=== PATIENT | female | born 1965 | race Caucasian/White ===

== ENCOUNTER → 2016-10-14 | Outpatient (REF) | payer OTHER ==
[2016-10-14 19:09] LABS: ALBUMIN 4.1 GM/DL (3.2-5.2); ALBUMIN/GLOBULIN RATIO 1.11 (1.00-1.93); BILIRUBIN,TOTAL 0.7 MG/DL (0.2-1.0); CALCIUM LEVEL 10.6 MG/DL (8.5-10.1); CREATININE FOR GFR 1.15 MG/DL (0.55-1.02); GLOMERULAR FILTRATION RATE 53.2 (>51); POTASSIUM SERUM 3.8 MEQ/L (3.5-5.1); TOTAL PROTEIN 7.8 GM/DL (6.4-8.2)
[2016-10-14 19:15] LABS: MEAN CORPUSCULAR HEMOGLOBIN 29.4 pg (27.0-33.0); MEAN CORPUSCULAR HGB CONC 32.3 g/dl (32.0-36.5); MEAN CORPUSCULAR VOLUME 91.2 fl (80.0-96.0); RED CELL DISTRIBUTION WIDTH 14.2 % (11.5-14.5); WHITE BLOOD COUNT 7.5 K/mm3 (4.0-10.0)
== END ==
LOC: M SFHCPLAZ 15:18
PROVIDERS: ATTEND Nurse Practitioner Adult Health
DX: Z00.00 Encounter for general adult medical examination without abnormal findings (principal)

== ENCOUNTER → 2016-11-05 | Outpatient (REF) | payer OTHER ==
[2016-11-05 19:08] LABS: CALCIUM OXALATE CRYSTALS SMALL
== END ==
LOC: M LAB REF 17:17
PROVIDERS: ATTEND Physician Assistant
DX: N39.0 Urinary tract infection, site not specified (principal)

== ENCOUNTER 2016-11-13 13:46 | Day surgery (SDC) | payer OTHER ==
[~2016-11-13] VITALS: Ht 157.5 cm; Wt 63.5 kg
[2016-11-13] MEDS ORDERED: GABA300C3 (14:08)
[2016-11-13] MEDS ORDERED: TOPI25TA5 (14:08)
[2016-11-13] MEDS ORDERED: CITA40TA4 (14:08)
[2016-11-13] MEDS ORDERED: FLUT1SPR2 (14:08)
[2016-11-13] MEDS ORDERED: CIPR500T3 (14:08)
[2016-11-13] MEDS ORDERED: NS 1,000 ML IV ONE (14:45)
[2016-11-13] MEDS ORDERED: KETOROLAC 30 MG/ML VIAL (J1885) IV ONE (14:45)
[2016-11-13] MEDS ORDERED: ONDANSETRON 4MG/2ML VIAL (J2405) IV ONE (14:45)
--- NOTE | 2016-11-13 15:29 | REP ---
REASON: Left-sided flank pain with hematuria. COMPARISON: None. There is right renal enlargement and moderate hydronephrosis which can be followed to the level of the ureteropelvic junction where a somewhat round 8 mm sized calcification resides. There are bilateral multiple nephroliths. There are multiple bilateral pelvic phleboliths. There is a large calcification in the left hemipelvis which is abutting more likely than within the distal left ureter since there is no marialuisa left-sided hydronephrosis. A calculus of this size would at least cause some expected hydronephrosis and hydroureter. Limited evaluation of the solid intra-abdominal organs and gallbladder show no gross abnormalities. Limited evaluation of the bowel loops and their mesenteries show no gross abnormalities. There is no intra-abdominal or intrapelvic mass or adenopathy. There is no free fluid or free air in the abdomen or pelvis. There are no urinary bladder calcifications. Bone window technique through the examination shows no abnormalities. IMPRESSION: 1. Right-sided hydronephrosis due to an 8 mm size calcification as described above. 2. Bilateral nephroliths. 3. Large left hemipelvic calcification as described above. I recommend followup. Signed by Juve Pink DO 11/13/2016 03:58 P
[2016-11-13 15:49] LABS: ALBUMIN 3.8 GM/DL (3.2-5.2); ALBUMIN/GLOBULIN RATIO 1.03 (1.00-1.93); BILIRUBIN,DIRECT 0.1 MG/DL (0.0-0.2); BILIRUBIN,TOTAL 0.6 MG/DL (0.2-1.0); CALCIUM LEVEL 10.3 MG/DL (8.5-10.1); CREATININE FOR GFR 2.03 MG/DL (0.55-1.02); GLOMERULAR FILTRATION RATE 27.6 (>51); POTASSIUM SERUM 4.2 MEQ/L (3.5-5.1); TOTAL PROTEIN 7.5 GM/DL (6.4-8.2)
[2016-11-13 15:55] LABS: BASO % 0.6 % (0.0-1.0); EOS # 0.3 K/mm3 (0.0-0.50); EOS % 2.8 % (0.0-3.0); LARGE UNSTAINED CELL # 0.2 K/mm3 (0.0-0.4); LARGE UNSTAINED CELL % 1.6 % (0.0-4.0); LYMPH # 1.3 K/mm3 (1.5-4.5); LYMPH % 11.5 % (24.0-44.0); MEAN CORPUSCULAR HGB CONC 33.4 g/dl (32.0-36.5); MEAN CORPUSCULAR VOLUME 92.9 fl (80.0-96.0); MONO # 0.7 K/mm3 (0.0-0.8); MONO % 6.9 % (0.0-5.0); NEUTROPHILS # 7.6 K/mm3 (1.8-7.7); NEUTROPHILS % 76.7 % (36.0-66.0); PLATELET COUNT, AUTOMATED 270 k/mm3 (150-450); RED CELL DISTRIBUTION WIDTH 14.9 % (11.5-14.5); WHITE BLOOD COUNT 9.9 K/mm3 (4.0-10.0)
[2016-11-13] MEDS ORDERED: CIPROFLOXACIN 400 MG in APPROPRIATE DILUENT 1 EA IV ONE (16:30)
[2016-11-13] MEDS ORDERED: CIPR500T3 PO (16:47)
[2016-11-13] MEDS ORDERED: HAIRTAB5 PO (16:49)
[2016-11-13] MEDS ORDERED: FLON1SPR (16:49)
[2016-11-13] MEDS ORDERED: TOPI25TA5 PO (16:49)
[2016-11-13] MEDS ORDERED: CITA40TA4 PO (16:49)
[2016-11-13] MEDS ORDERED: LevoFLOXacin(LEVAQUIN)500 MG/100 ML BAG (J1956) As Ordered ONE (17:59)
[2016-11-13] MEDS ORDERED: CONRAY-60 60% 50ML VIAL (Q9961) As Ordered ONE (17:59)
[2016-11-13] MEDS ORDERED: MIDAZOLAM INJ 2 MG/2 ML VIAL (J2250) As Ordered ONE (18:06)
[2016-11-13] MEDS ORDERED: fentaNYL 100 MCG/2 ML INJECTION (J3010) As Ordered ONE ×2 (18:07→18:39)
[2016-11-13] MEDS ORDERED: PROPOFOL 200 MG/20 ML VIAL As Ordered ONE (18:10)
[2016-11-13] MEDS ORDERED: dexameTHASONE 4 MG/ML 1ML VIAL (J1100) As Ordered ONE (18:10)
[2016-11-13] MEDS ORDERED: LIDOCAINE 2% INJ 100 MG/5 ML SDV (FOR ANES.) As Ordered ONE (18:10)
[2016-11-13] MEDS ORDERED: ONDANSETRON 4MG/2ML VIAL (J2405) As Ordered ONE (18:10)
[2016-11-13] MEDS ORDERED: ePHEDrine SULFATE 25 MG/5 ML(5MG/ML) SYRINGE As Ordered ONE (18:59)
[2016-11-13] MEDS ORDERED: CONRAY-60 60% 50ML VIAL (Q9961) XX ONE (19:14)
--- NOTE | 2016-11-13 20:25 | REP ---
RETROGRADE PYELOGRAM: 11/13/2016. Comparison: CT abdomen and pelvis today. Clinical history: Right UPJ stone with hydronephrosis. Findings: Five images from C-arm fluoroscopy provided to Dr. Hayes of the Urology division. Images show a wire into the renal collecting system. Trace amount of contrast is seen within a catheter and the lower pole collecting system adjacent to that wire in the ureter. The second images show hydronephrosis and caliectasis with the third image showing the wire removed, and a double pigtail stent present from the renal pelvis proximally to the distal coil in the bladder. Fluoroscopy time: 1 minute 19 seconds Signed by Aneesh Montgomery MD 11/14/2016 09:12 A
[2016-11-13] MEDS ORDERED: fentaNYL 100 MCG/2 ML INJECTION (J3010) IV PRN (20:30)
[2016-11-13] MEDS ORDERED: ONDANSETRON 4MG/2ML VIAL (J2405) IV PRN ×2 (20:30)
[2016-11-13] MEDS ORDERED: LR 1,000 ML IV SCH (20:30)
[2016-11-13] MEDS ORDERED: PERCOCET 5MG/325MG TAB PO PRN (20:30)
[2016-11-13] MEDS ORDERED: METOCLOPRAMIDE INJ 10MG/2ML VIAL (J2765) IV PRN (20:30)
[2016-11-13] MEDS ORDERED: MORPHINE 4 MG/ML 1ML SYRINGE IV PRN (20:45)
[2016-11-13 20:50] VITALS: BP 125/80
[2016-11-13 21:20] VITALS: BP 127/81
[2016-11-13 22:00] VITALS: BP 130/69
[2016-11-13] MEDS: ACETAMINOPHEN 650MG ER TAB (TYLENOL ARTHRITIS) PO SCH (22:09)
[2016-11-13 23:00] VITALS: BP 143/73
[2016-11-14] VITALS: BP 124/74
[2016-11-14] MEDS: oxyCODONE 5MG TAB PO PRN ×2 (00:51→11:16)
[2016-11-14 01:00] VITALS: BP 121/73
[2016-11-14 04:00] VITALS: BP 118/66
[2016-11-14] MEDS: ACETAMINOPHEN 650MG ER TAB (TYLENOL ARTHRITIS) PO SCH (05:27)
[2016-11-14] MEDS ORDERED: ACETAMINOPHEN 650MG ER TAB (TYLENOL ARTHRITIS) PO SCH (06:00)
[2016-11-14 07:36] LABS: MEAN CORPUSCULAR HEMOGLOBIN 30.8 pg (27.0-33.0); MEAN CORPUSCULAR HGB CONC 34.1 g/dl (32.0-36.5); MEAN CORPUSCULAR VOLUME 90.2 fl (80.0-96.0); WHITE BLOOD COUNT 8.9 K/mm3 (4.0-10.0)
[2016-11-14 07:56] LABS: CREATININE FOR GFR 1.69 MG/DL (0.55-1.02); GLOMERULAR FILTRATION RATE 34.1 (>51); POTASSIUM SERUM 4.4 MEQ/L (3.5-5.1)
[2016-11-14 08:00] VITALS: BP 135/87
[2016-11-14] MEDS ORDERED: PANTOPRAZOLE 40MG INJ (PROTONIX) (C9113) IV SCH (09:00)
[2016-11-14] MEDS ORDERED: PERCOCET PO (10:04)
[2016-11-14] MEDS ORDERED: CIPR500T3 PO (10:04)
[2016-11-14] MEDS ORDERED: LevoFLOXacin 500 MG TABLET PO SCH (18:00)
--- NOTE | 2016-11-15 05:44 | DSES ---
DATE OF ADMISSION: 11/13/2016 DATE OF DISCHARGE: 11/14/2016 ADMISSION DIAGNOSIS: Right renal stone. DISCHARGE DIAGNOSIS: Right renal stone. SURGERY PERFORMED: Cystoscopy, plus right retrograde pyelogram, plus right ureteroscopy, plus right laser stone lithotripsy, plus right basket extraction of stone, plus right double J stent placement. ADMITTING SURGEON: Dr. Leroy Hayes DISCHARGE SURGEON: Dr. Leroy Hayes COMPLICATIONS: None. HISTORY OF PRESENT ILLNESS: 51-year-old female patient with an 8 mm ureteropelvic junction (UPJ) stone in the right kidney with severe flank pain who actually came to the emergency department (ED) due to uncontrolled pain. For this reason, she was taken to the operating room (OR) for a cystoscopy, plus right retrograde pyelogram, plus right ureteroscopy, plus laser stone lithotripsy, plus basket extraction of stone, plus right double J stent placement. This was performed on 11/13/2016. The surgery was without complications. She was admitted after this. HOSPITAL COURSE: The patient did very well. By postoperative day #1, she was tolerating regular diet, passing gas, and voiding very well. There was no fever, no chills. For this reason, she requested to go home and we agreed upon this. She will go home with ciprofloxacin 500 mg one tablet by mouth twice a day for seven days. She will go with Percocet one tablet by mouth every six hours as needed for pain for 10 days. She will followup in one week at [facility] [place] for removal of right double J stent. There were no complications with surgery or hospitalization.
--- NOTE | 2016-11-15 16:20 | RO ---
DATE OF PROCEDURE: 11/13/2016 PREOPERATIVE DIAGNOSIS: 8 mm right renal pelvis stone causing right hydronephrosis. POSTOPERATIVE DIAGNOSIS: 8 mm right renal pelvis stone causing right hydronephrosis. SURGERY PERFORMED: Cystoscopy, plus right retrograde pyelogram, plus right ureteroscopy, plus laser stone lithotripsy, plus basket extraction of stone, plus right double stent placement, #6-Cypriot [place] Cook. SURGEON: Dr. Leroy Hayes CURBSTONE SETTER: Sergio Chopra, PGY-3, Resident ANESTHESIA: General. COMPLICATIONS: None. ESTIMATED BLOOD LOSS: N/A HISTORY OF PRESENT ILLNESS: 51-year-old female patient that has on-and-off right flank pain. She came to the emergency department at [facility] [place] due to severe flank pain. She had a CT scan of the abdomen and pelvis, noncontrast, that shows an 8 mm right renal stone causing severe hydronephrosis. For this reason, she has consented for a cystoscopy, right retrograde pyelogram, plus right ureteroscopy, plus laser stone lithotripsy, plus basket extraction of stone, plus right double J stent placement. PROCEDURE DESCRIPTION: In a patient under general anesthesia, in supine modified low lithotomy position after prepping and draping the area of concern, which included the entire genitalia and abdomen, we started introducing a cystoscope #21-Cypriot in diameter with 30 degrees lens. The urethra and bladder neck were totally normal. The bladder had no tumors, no stones no foreign objects. Both ureteral orifices were seen. We then catheterized the right ureteral orifice with a #5-Cypriot Pollack catheter and did a retrograde pyelogram. We could see the stone in the ureteropelvic junction (UPJ) causing severe hydronephrosis. We then passed through the Pollack catheter, a guidewire up to the kidney and took the Pollack catheter out. We then proceeded to actually take the cystoscope out and pass a double lumen catheter and pass a second guidewire up to the kidney. We then proceeded to actually pass, following one of the guidewires after taking a double lumen catheter out, a ureteral access sheath, 28 cm in length and #12-Cypriot in diameter. Once it was in the proximal ureter we took the obturator out and internal guidewire. We left the parallel safety guidewire in place. Through that ureteral access sheath we placed a flexible ureteroscope and did a formal ureteroscopy and also a nephroscopy. We could see the stone in the UPJ had passed to a lower pole of the kidney. At that moment in time, we grabbed the Holmium laser micron probe and under Holmium laser power of 0.6 and a rate of 10 we pulverized the stone into multiple pieces. We then grabbed a Zero Tip basket and grabbed the largest pieces out of the body of the patient. We flushed the dust through the ureteral access sheath. There were no stones left after doing nephroscopy with a flexible ureteroscope upper pole, mid pole and lower pole. We then did a retrograde ureteroscopy and removing the ureteral access sheath at the same time as removing the flexible ureteroscope. There were no stones left in the ureter. We then proceeded to follow the guidewire with the cystoscope and load a double J stent on the right side through the guidewire. Once the stent was in good position, we took the guidewire out and we could see the curl in the kidney and the curl in the bladder. We then emptied the bladder and took the cystoscope out. PLAN: The patient will stay overnight with antibiotics and pain medication. If she is doing well tomorrow morning she will going home with antibiotics and pain medication. She will followup at [facility] [place] in about one week to remove the right double J stent. There were no complications during surgery. Stones were sent for biochemical analysis.
== END 2016-11-14 11:45 | disposition home or self-care (01) ==
LOC: M ED 15:06 → M SDC 17:00 → M PED 20:50 → M SDC 11-14 11:45
PROVIDERS: ATTEND Urology
DX: N13.2 Hydronephrosis with renal and ureteral calculous obstruction (principal)
CPT/HCPCS: 36415; 52352; 52356; 74176; 74420; 80048; 80076; 81001; 82360; 85025; 85027; 87086; 88300; 96375; 99284; C1769; C1894; C2617; C9113; J0744; J1100; J1885; J1956; J2250; J2405; J3010; Q9961

== ENCOUNTER → 2016-11-27 | Outpatient (REF) | payer OTHER ==
[~2016-11-27] MED LIST: CIPR500T3; CIPR500T3 PO; CITA40TA4; CITA40TA4 PO; FLON1SPR; FLUT1SPR2; GABA300C3; HAIRTAB5 PO; PERCOCET PO; TOPI25TA5; TOPI25TA5 PO
== END ==
LOC: M SMT 17:15
PROVIDERS: ATTEND Urology
DX: N20.0 Calculus of kidney (principal)

== ENCOUNTER → 2016-12-09 | Outpatient (CLI) | payer OTHER ==
[~2016-12-09] MED LIST changes: +BACT800T5 PO; +GABA-282; -GABA300C3
== END ==
LOC: M SMT 14:58
PROVIDERS: ATTEND Nurse Practitioner Women's Health
DX: Z01.818 Encounter for other preprocedural examination (principal); N20.0 Calculus of kidney

== ENCOUNTER → 2016-12-11 | Day surgery (SDC) | payer OTHER ==
[~2016-12-11] VITALS: Ht 157.5 cm; Wt 61.2 kg
[~2016-12-11] MED LIST changes: +CONRAY-60 60% 50ML VIAL (Q9961) As Ordered ONE; +KETOROLAC 60 MG/2 ML VIAL (J1885) As Ordered ONE; +LIDOCAINE 2% INJ 100 MG/5 ML SDV (FOR ANES.) As Ordered ONE; +LR 1,000 ML IV SCH; +METOCLOPRAMIDE INJ 10MG/2ML VIAL (J2765) IV PRN; +MIDAZOLAM INJ 2 MG/2 ML VIAL (J2250) As Ordered ONE; +ONDANSETRON 4MG/2ML VIAL (J2405) As Ordered ONE; +ONDANSETRON 4MG/2ML VIAL (J2405) IV PRN; +PERCOCET 5MG/325MG TAB PO PRN; +PROPOFOL 200 MG/20 ML VIAL As Ordered ONE; +fentaNYL 100 MCG/2 ML INJECTION (J3010) As Ordered ONE; +fentaNYL 100 MCG/2 ML INJECTION (J3010) IV PRN
--- NOTE | 2016-12-11 11:41 | REP ---
RETROGRADE PYELOGRAM: Seven views. HISTORY: Ureteral stone. 1 minute 35 seconds of fluoroscopy time is reported. FINDINGS: A sequence of seven last image hold fluoroscopically obtained spot radiographs document what appears to be left ureteral cannulation, contrast injection, and double pigtail ureteral stent placement. No laterality markers are seen. Signed by Emerson Marina MD 12/11/2016 02:36 P
[2016-12-11 13:35] VITALS: BP 122/76
--- NOTE | 2016-12-11 14:23 | RO ---
DATE OF SURGERY: 12/11/2016 PREOPERATIVE DIAGNOSES: Left distal ureteral stone and left kidney stone. POSTOPERATIVE DIAGNOSES: Left distal ureteral stone and left kidney stone. FINDINGS: Left ureteral distal stone of about 1.5 cm in diameter and the left kidney stone lower pole of about 8 mm in diameter. SURGERY PERFORMED: Cystoscopy plus left retrograde pyelogram plus left ureteroscopy plus left holmium laser stone lithotripsy plus left basket extraction of stone plus left double J stent placement, #6-[place] Cook. SURGEON: Leroy Hayes MD SUPERVISOR BOARDING: Sergio Hilliard, PGY-III ANESTHESIA: General. COMPLICATIONS: None. ESTIMATED BLOOD LOSS (EBL): N/A. HISTORY OF PRESENT ILLNESS: This is a 51-year-old female patient who has left flank pain and a stone in the distal ureter on the left side and also in the kidney. For this reason, she has consented for a cystoscopy, possible left retrograde pyelogram, possible left ureteroscopy, possible left laser stone lithotripsy, possible basket extraction of stones, possible left double-J stent placement. PROCEDURE DESCRIPTION: In a patient under general anesthesia, in supine modified low lithotomy position, after prepping and draping the area of concern, which included the entire genitalia and abdomen, we introduced a #21-Togolese cystoscope with a 30-degree lens under videoendoscopic guidance. The urethra and bladder neck were totally normal. The bladder had no tumors, no stones, no foreign objects. There was bullous edema on the left ureteral orifice. We cannot catheterize the ureteral orifice. There was something inside the intramural area of the left ureteral orifice. For this reason, we passed a Solo guidewire up to the kidney following the Pollack catheter and bypass what was obstructed in the distal ureter. We then proceeded to take the cystoscope out and pass a double-lumen catheter and pass a second guidewire. We took the double-lumen catheter out and then introduced following one of the guidewires a semirigid short ureteroscope #7-Togolese in diameter. Once we reached the stone, we took the internal guidewire out. We could see the stone very clearly in the intramural ureter. It was very large, about 1.5 cm. At that moment in time, we grabbed a 200 micron holmium laser and laser lithotripsy the stone into multiple fragments at a power of 0.6 and a rate of 10. We then proceeded to extract the holmium laser and pass the basket. With the basket, a 1.9-Togolese basket, we grabbed all the largest pieces and take it out of the body of the patient. Once the ureter was totally clear, we did a formal rigid ureteroscopy up and down the ureter. We then decided to actually take a look in the left kidney. We placed a ureteral access sheath 28 cm in length following the guidewire up to the proximal ureter. Through this ureteral access sheath, we grabbed a flexible ureteroscope and through the ureteral access sheath, we did a formal nephroscopy. We placed some contrast in a retrograde fashion visualized in the upper pole, midpole, and lower pole. With a flexible ureteroscopy, we need a nephroscopy of the upper pole, midpole, and lower pole. We found an 8 mm stone in the lower pole. With the basket, we grabbed the stone and took it out of the body of the patient through the ureteral access sheath. We then proceeded to do a retrograde ureteroscopy by removing the flexible ureteroscope and the ureteral access sheath. There were no stones behind in the left ureter. At that moment in time, we decided to place the cystoscope following the guidewire and place a left double-J stent #6-[place] Cook following the guidewire. Once the stent was in good position in the kidney, we took the guidewire out. We could see the curl in the kidney and the curl in the bladder. There were no complications during surgery. The patient will pass to recovery and be sent home with the following medications: Bactrim double-strength one tablet by mouth twice a day, Percocet for pain. She will followup in 7-10 days at [facility] [place] for removal of left double-J stent. ABBY
== END | disposition home or self-care (01) ==
LOC: M SDC 07:31
PROVIDERS: ATTEND Urology
DX: N20.2 Calculus of kidney with calculus of ureter (principal); D64.9 Anemia, unspecified; Z79.899 Other long term (current) drug therapy
CPT/HCPCS: 52356; 74420; 82360; 88300; C1726; C1894; C2617; J0690; J1885; J2250; J2405; J3010; Q9961

== ENCOUNTER → 2017-01-02 | Outpatient (REF) | payer OTHER ==
[~2017-01-02] MED LIST changes: -CONRAY-60 60% 50ML VIAL (Q9961) As Ordered ONE; -KETOROLAC 60 MG/2 ML VIAL (J1885) As Ordered ONE; -LIDOCAINE 2% INJ 100 MG/5 ML SDV (FOR ANES.) As Ordered ONE; -LR 1,000 ML IV SCH; -METOCLOPRAMIDE INJ 10MG/2ML VIAL (J2765) IV PRN; -MIDAZOLAM INJ 2 MG/2 ML VIAL (J2250) As Ordered ONE; -ONDANSETRON 4MG/2ML VIAL (J2405) As Ordered ONE; -ONDANSETRON 4MG/2ML VIAL (J2405) IV PRN; -PERCOCET 5MG/325MG TAB PO PRN; -PROPOFOL 200 MG/20 ML VIAL As Ordered ONE; -fentaNYL 100 MCG/2 ML INJECTION (J3010) As Ordered ONE; -fentaNYL 100 MCG/2 ML INJECTION (J3010) IV PRN
== END ==
LOC: M SMT 16:51
PROVIDERS: ATTEND Urology
DX: N20.0 Calculus of kidney (principal)

== ENCOUNTER → 2017-01-10 | Outpatient (REF) | payer OTHER ==
[2017-01-10 17:52] LABS: CALCIUM OXALATE CRYSTALS LARGE
== END ==
LOC: M SMT 16:52
PROVIDERS: ATTEND Nurse Practitioner Women's Health
DX: R10.9 Unspecified abdominal pain (principal)

== ENCOUNTER → 2017-01-23 | Outpatient (CLI) | payer OTHER ==
--- NOTE | 2017-01-23 16:44 | REP ---
CT abdomen and pelvis without IV or oral contrast: Renal stone protocol: History: Right-sided kidney stone. Right flank pain. Comparison study: 11/13/2016. This recent prior study showed a right-sided hydronephrosis due to an 8 mm proximal ureteral calculus. Findings: The lung bases are clear on axial CT images. Bowel gas pattern is unremarkable. The liver and the spleen are normal in size and homogeneous in texture. No adrenal lesion is seen. The gallbladder is unremarkable. The previously noted right-sided hydronephrosis is resolved. There are two tiny 1 mm calcific densities in the intrarenal collecting system of the lower pole right kidney. The right ureteral stone has resolved. It is not visible in the bladder. No left ureteral calculus or hydronephrosis is seen. No pelvic or ovarian abnormality is observed. A normal appendix is observed. No abdominal wall defect is seen. No bony destructive lesion is appreciated. Impression: Two tiny calcifications in the lower pole of the right kidney. No hydronephrosis or ureteral stone seen on either side. No left ureteral calculus seen. Previously noted bilateral intrarenal and right ureteral calculi no longer apparent. Signed by Emerson Marina MD 01/23/2017 04:47 P
== END ==
LOC: M RAD 16:06
PROVIDERS: ATTEND Nurse Practitioner Women's Health
DX: N20.0 Calculus of kidney (principal)

== ENCOUNTER 2017-03-07 19:29 | Emergency (ER) | payer OTHER ==
[~2017-03-07] VITALS: Ht 157.5 cm; Wt 68.6 kg
[~2017-03-07 19:29] MED LIST changes: +TOPI25TA10; +TOPI25TA10 PO; -TOPI25TA5; -TOPI25TA5 PO
--- NOTE | 2017-03-07 20:26 | REP ---
Clinical: Trauma. Technique: AP, lateral, bilateral oblique views of the left ankle. Findings: Lateral soft tissue swelling. No acute fracture dislocation. Joint spaces and ankle mortise are intact. Impression: Lateral swelling. No acute fracture or dislocation. Signed by Eusebio Lambert MD 03/07/2017 08:17 P
[2017-03-07 20:37] VITALS: BP 134/80
== END 2017-03-07 20:52 | disposition home or self-care (01) ==
LOC: M ED 19:29
DX: S93.402A Sprain of unspecified ligament of left ankle, initial encounter (principal); W19.XXXA Unspecified fall, initial encounter; Y92.099 Unspecified place in other non-institutional residence as the place of occurrence of the external cause; Y93.9 Activity, unspecified; Y99.9 Unspecified external cause status; F41.9 Anxiety disorder, unspecified; F32.9 Major depressive disorder, single episode, unspecified; Z87.442 Personal history of urinary calculi; Z79.899 Other long term (current) drug therapy

== ENCOUNTER → 2017-06-02 | Outpatient (CLI) | payer OTHER ==
[2017-06-02 19:08] LABS: ALBUMIN 4.1 GM/DL (3.2-5.2); ALBUMIN/GLOBULIN RATIO 1.17 (1.00-1.93); BILIRUBIN,TOTAL 0.9 MG/DL (0.2-1.0); CREATININE FOR GFR 1.05 MG/DL (0.55-1.02); GLOMERULAR FILTRATION RATE 59.1 (>51); POTASSIUM SERUM 4.1 MEQ/L (3.5-5.1); TOTAL PROTEIN 7.6 GM/DL (6.4-8.2)
== END ==
LOC: M WUC 16:42
PROVIDERS: ATTEND Nurse Practitioner Adult Health
DX: E83.52 Hypercalcemia (principal); E55.9 Vitamin D deficiency, unspecified; N20.0 Calculus of kidney

== ENCOUNTER → 2017-06-17 | Outpatient (CLI) | payer OTHER ==
--- NOTE | 2017-06-17 14:52 | REP ---
NUCLEAR PARATHYROID SESTAMIBI SCAN WITH SPECT IMAGING: Following the intravenous administration of 27.1 millicuries technetium 99m sestamibi, 15-minute and 4-hour delayed images are performed of the neck in the anterior and both anterior oblique projections. Delayed SPECT images are also performed in the axial, coronal and sagittal planes. The initial 15-minute images show symmetrical salivary gland uptake as well as symmetrical activity in the thyroid bed. The delayed images show persistent salivary gland activity. There is bilateral washout of activity from the thyroid bed with no persistent focus of abnormal uptake. IMPRESSION: No compelling scintigraphic evidence of parathyroid adenoma. Signed by Nathan Bermeo MD 06/17/2017 08:01 P
== END ==
LOC: M RAD 08:49
PROVIDERS: ATTEND Nurse Practitioner Adult Health
DX: E83.52 Hypercalcemia (principal)

== ENCOUNTER 2017-08-01 10:46 | Day surgery (SDC) | payer OTHER ==
[~2017-08-01] VITALS: Ht 157.5 cm; Wt 68.0 kg
[~2017-08-01 10:46] MED LIST changes: +BENA25CA4 PO; +CLAR1TAB2 PO; +CONRAY-60 60% 50ML VIAL (Q9961) As Ordered ONE
[2017-08-01] MEDS ORDERED: NS 1,000 ML IV ONE (11:00)
[2017-08-01] MEDS ORDERED: PROPOFOL 200 MG/20 ML VIAL As Ordered ONE (12:40)
[2017-08-01] MEDS ORDERED: LIDOCAINE 2% INJ 100 MG/5 ML SDV (FOR ANES.) As Ordered ONE (12:40)
--- NOTE | 2017-08-01 13:08 | ROOR ---
Patient Name: Carmen Rosado Procedure Date: 08/01/2017 12:38 PM Date of : 1965 Age: 51 Room: [facility] Gender: Female Note Status: Finalized Procedure: Colonoscopy Indications: Screening for colorectal malignant neoplasm Providers: Surendra STANFORD MD Referring MD: Poonam Molina NP Requesting Provider: Medicines: Monitored Anesthesia Care Complications: No immediate complications. Procedure: Pre-Anesthesia Assessment: - The heart rate, respiratory rate, oxygen saturations, blood pressure, adequacy of pulmonary ventilation, and response to care were monitored throughout the procedure. The Colonoscope was introduced through the anus and advanced to the terminal ileum, with identification of the appendiceal orifice and IC valve. The colonoscopy was performed without difficulty. The patient tolerated the procedure well. The quality of the bowel preparation was good. Findings: The perianal and digital rectal examinations were normal. A 5 mm polyp was found in the sigmoid colon. The polyp was sessile. The polyp was removed with a cold snare. Resection and retrieval were complete. A single suture granuloma was found in the distal rectum. The polyp was removed with a piecemeal technique using a cold snare. Polyp resection was incomplete. The resected tissue was retrieved. A single suture granuloma was found at the anus. Biopsies were taken with a cold forceps for histology. Impression: - One 5 mm polyp in the sigmoid colon, removed with a cold snare. Resected and retrieved. - 2.0 cm polypoid nodular mucosa. probable scar/granuloma in the distal rectum.- Polypectomy snare used to sample/biopsy. - 1.5 cm polypoid nodular mucosa. probable scar/granuloma at the anus. Biopsied with cold biopsy forcep. - The examination was otherwise normal. Recommendation: - Telephone endoscopist for pathology results in 2 weeks. - Repeat colonoscopy interval and possible additional management will depend on pathology report. Surendra Stanford MD Surendra STANFORD MD 08/01/2017 1:07:39 PM This report has been signed electronically. Number of Addenda: 0 Note Initiated On: 08/01/2017 12:38 PM Estimated Blood Loss: Estimated blood loss: none.
[2017-08-01 13:20] VITALS: BP 112/64
== END 2017-08-01 13:36 | disposition home or self-care (01) ==
LOC: M OPP 10:46
PROVIDERS: ATTEND Internal Medicine Gastroenterology
DX: Z12.11 Encounter for screening for malignant neoplasm of colon (principal); Z80.0 Family history of malignant neoplasm of digestive organs; D12.5 Benign neoplasm of sigmoid colon; K62.1 Rectal polyp; E78.5 Hyperlipidemia, unspecified; E07.9 Disorder of thyroid, unspecified; D64.9 Anemia, unspecified; Z87.442 Personal history of urinary calculi; Z80.42 Family history of malignant neoplasm of prostate; Z79.899 Other long term (current) drug therapy

== ENCOUNTER → 2017-08-27 | Outpatient (CLI) | payer OTHER ==
[2017-08-27 16:41] LABS: MEAN CORPUSCULAR HEMOGLOBIN 30.4 pg (27.0-33.0); MEAN CORPUSCULAR HGB CONC 32.8 g/dl (32.0-36.5); MEAN CORPUSCULAR VOLUME 92.5 fl (80.0-96.0); PLATELET COUNT, AUTOMATED 318 10^3/uL (150-450); RED CELL DISTRIBUTION WIDTH 12.7 % (11.5-14.5); WHITE BLOOD COUNT 7.3 10^3/uL (4.0-10.0)
[2017-08-27 17:31] LABS: PERCENT SATURATION 14.1 % (13.2-45.0); TOTAL IRON BINDING CAPACITY 398 UG/DL (250-450)
== END ==
LOC: M LAB 16:00
DX: K62.5 Hemorrhage of anus and rectum (principal)
CPT/HCPCS: 83550

== ENCOUNTER → 2017-11-11 | Outpatient (CLI) | payer BC ==
[2017-11-11 16:46] LABS: CALCIUM LEVEL 8.9 MG/DL (8.5-10.1)
[2017-11-11 17:01] LABS: PTH INTACT 35.9 PG/ML (18.5-88.0)
== END ==
LOC: M LAB 15:27
DX: E21.3 Hyperparathyroidism, unspecified (principal)

== ENCOUNTER 2018-02-15 18:58 | Inpatient (IN) | payer BC ==
[2018-02-15 19:39] LABS: KETONE, URINE AUTO RFX NEGATIVE (NEGATIVE); LEUKOCYTE ESTERASE UR AUTO RFX NEGATIVE (NEGATIVE); MUCUS, URINE RFX SMALL (NEGATIVE); NITRITE, URINE AUTO RFX NEGATIVE (NEGATIVE); RBC, URINE AUTO RFX 82 /HPF (0-3); SPECIFIC GRAVITY UR AUTO RFX 1.019 (1.002-1.035); SQUAM EPITHELIAL CELL UR AURFX 13 /HPF (0-6); WBC, URINE AUTO RFX 7 /HPF (0-3)
[2018-02-15] MEDS: NS 1,000 ML IV ×5 (21:50)
[2018-02-15] MEDS: KETOROLAC 30 MG/ML VIAL (J1885) IV ×5 (21:50)
[2018-02-15 21:54] LABS: BASO # 0.1 10^3/uL (0.0-0.2); BASO % 0.8 % (0.0-1.0); EOS # 0.3 10^3/uL (0.0-0.50); EOS % 3.7 % (0.0-3.0); HEMATOCRIT 39.3 % (36.0-47.0); HEMOGLOBIN 12.6 g/dl (12.0-15.5); IMMATURE GRANULOCYTE % 0.6 % (0-3.0); LYMPH # 1.8 10^3/uL (1.5-4.5); LYMPH % 21.6 % (24.0-44.0); MEAN CORPUSCULAR HEMOGLOBIN 28.4 pg (27.0-33.0); MEAN CORPUSCULAR HGB CONC 32.1 g/dl (32.0-36.5); MEAN CORPUSCULAR VOLUME 88.7 fl (80.0-96.0); MONO # 0.8 10^3/uL (0.0-0.8); NEUTROPHILS # 5.4 10^3/uL (1.8-7.7); NEUTROPHILS % 64.3 % (36.0-66.0); PLATELET COUNT, AUTOMATED 289 10^3/uL (150-450); RED BLOOD COUNT 4.43 10^6/uL (4.00-5.40); RED CELL DISTRIBUTION WIDTH 13.2 % (11.5-14.5); WHITE BLOOD COUNT 8.4 10^3/uL (4.0-10.0)
[2018-02-15 22:17] LABS: LACTIC ACID SEPSIS PROTOCOL 0.8 MMOL/L (0.4-2.0)
[2018-02-15 22:17] LABS: ALBUMIN 3.7 GM/DL (3.2-5.2); ALBUMIN/GLOBULIN RATIO 1.03 (1.00-1.93); ALKALINE PHOSPHATASE 113 U/L (45-117); ALT/SGPT 21 U/L (12-78); ANION GAP 9 MEQ/L (8-16); AST/SGOT 12 U/L (7-37); BILIRUBIN,DIRECT 0.1 MG/DL (0.0-0.2); BILIRUBIN,TOTAL 0.4 MG/DL (0.2-1.0); BLOOD UREA NITROGEN 20 MG/DL (7-18); CALCIUM LEVEL 8.6 MG/DL (8.5-10.1); CARBON DIOXIDE LEVEL 23 MEQ/L (21-32); CHLORIDE LEVEL 108 MEQ/L (98-107); CREATININE FOR GFR 1.48 MG/DL (0.55-1.30); GLOMERULAR FILTRATION RATE 39.6 (>51); GLUCOSE, FASTING 93 MG/DL (70-100); POTASSIUM SERUM 3.9 MEQ/L (3.5-5.1); SODIUM LEVEL 140 MEQ/L (136-145); TOTAL PROTEIN 7.3 GM/DL (6.4-8.2)
[2018-02-15] MEDS ORDERED: MORPHINE 4 MG/ML 1ML VIAL/SYRINGE (J2270) IV ×5 (23:45)
[2018-02-15] MEDS ORDERED: ONDANSETRON 4MG/2ML VIAL (J2405) IV ×5 (23:45)
[2018-02-16] MEDS: CIPROFLOXACIN 400 MG in APPROPRIATE DILUENT 1 EA IV ×5 (02:17)
[2018-02-16] MEDS: D5W/0.45% SODIUM CHLORIDE 1,000 ML IV ×10 (02:17→14:54)
[2018-02-16] MEDS: KETOROLAC 30 MG/ML VIAL (J1885) IV ×15 (03:53→16:06)
[2018-02-16] MEDS ORDERED: CONRAY-60 60% 50ML VIAL (Q9961) As Ordered ×5 (11:07)
[2018-02-16] MEDS ORDERED: dexameTHASONE 4 MG/ML 1ML VIAL (J1100) As Ordered ×5 (12:14)
[2018-02-16] MEDS ORDERED: PROPOFOL 200 MG/20 ML VIAL As Ordered ×5 (12:14)
[2018-02-16] MEDS ORDERED: fentaNYL 100 MCG/2 ML INJECTION (J3010) As Ordered ×5 (12:14)
[2018-02-16] MEDS ORDERED: ONDANSETRON 4MG/2ML VIAL (J2405) As Ordered ×5 (12:14)
[2018-02-16] MEDS ORDERED: LIDOCAINE 2% INJ 100 MG/5 ML SDV (FOR ANES.) As Ordered ×5 (12:14)
[2018-02-16] MEDS ORDERED: MIDAZOLAM INJ 2 MG/2 ML VIAL (J2250) As Ordered ×5 (12:15)
[2018-02-16] MEDS: ceFAZolin 2 GM/D5W 50 ML IV BAG (J0690 PER 500MG) As Ordered ×5 (12:34)
[2018-02-16] MEDS: LIDOCAINE 2% 5ML JELLY UROJET As Ordered ×5 (13:07)
[2018-02-16] MEDS ORDERED: PERCOCET 5MG/325MG TAB PO ×5 (13:45)
[2018-02-16] MEDS ORDERED: ONDANSETRON 4MG/2ML VIAL (J2405) IV ×5 (13:45)
[2018-02-16] MEDS ORDERED: LR 1,000 ML IV ×5 (13:45)
[2018-02-16] MEDS ORDERED: METOCLOPRAMIDE INJ 10MG/2ML VIAL (J2765) IV ×5 (13:45)
[2018-02-16] MEDS ORDERED: fentaNYL 100 MCG/2 ML INJECTION (J3010) IV ×5 (13:45)
[2018-02-16] MEDS ORDERED: MEPERIDINE INJ 25 MG/ML VIAL (J2175) IV ×5 (13:45)
== END 2018-02-16 17:35 | disposition home or self-care (01) | DRG 465 ==
LOC: M ED INP 02-16 01:48 → M PED 02-16 01:48 → M ED 18:58 → M SDC 02-16 08:50 → M PED 02-16 08:51 → M ED INP 23:20 → M SDC 02-16 17:35
PROC: 0T9780Z Drainage of Left Ureter with Drainage Device, Via Natural or Artificial Opening Endoscopic (ICD-10-PCS; principal; 2018-02-16 08:37)
DX: N13.2 Hydronephrosis with renal and ureteral calculous obstruction (principal); D64.9 Anemia, unspecified; Z79.899 Other long term (current) drug therapy; N20.1 Calculus of ureter; E78.4 Other hyperlipidemia; E03.9 Hypothyroidism, unspecified
CPT/HCPCS: 52332; J0690

== ENCOUNTER 2018-02-20 15:46 | Emergency (ER) | payer BC ==
[2018-02-20 16:59] LABS: BASO # 0.1 10^3/uL (0.0-0.2); BASO % 0.8 % (0.0-1.0); EOS # 0.2 10^3/uL (0.0-0.50); EOS % 2.1 % (0.0-3.0); HEMATOCRIT 37.1 % (36.0-47.0); HEMOGLOBIN 12.2 g/dl (12.0-15.5); IMMATURE GRANULOCYTE % 0.4 % (0-3.0); LYMPH # 1.1 10^3/uL (1.5-4.5); MEAN CORPUSCULAR HEMOGLOBIN 28.9 pg (27.0-33.0); MEAN CORPUSCULAR HGB CONC 32.9 g/dl (32.0-36.5); MEAN CORPUSCULAR VOLUME 87.9 fl (80.0-96.0); MONO # 0.6 10^3/uL (0.0-0.8); NEUTROPHILS # 7.2 10^3/uL (1.8-7.7); NEUTROPHILS % 78.7 % (36.0-66.0); PLATELET COUNT, AUTOMATED 261 10^3/uL (150-450); RED BLOOD COUNT 4.22 10^6/uL (4.00-5.40); RED CELL DISTRIBUTION WIDTH 13.2 % (11.5-14.5); WHITE BLOOD COUNT 9.2 10^3/uL (4.0-10.0)
[2018-02-20 17:05] LABS: KETONE, URINE AUTO RFX NEGATIVE (NEGATIVE); MUCUS, URINE RFX LARGE (NEGATIVE); NITRITE, URINE AUTO RFX NEGATIVE (NEGATIVE); RBC, URINE AUTO RFX TNTC /HPF (0-3); SPECIFIC GRAVITY UR AUTO RFX 1.021 (1.002-1.035); SQUAM EPITHELIAL CELL UR AURFX 17 /HPF (0-6)
[2018-02-20] MEDS: MORPHINE 4 MG/ML 1ML VIAL/SYRINGE (J2270) IV (17:22)
[2018-02-20] MEDS: ONDANSETRON 4MG/2ML VIAL (J2405) IV (17:23)
[2018-02-20] MEDS: KETOROLAC 30 MG/ML VIAL (J1885) IV (17:23)
[2018-02-20 17:24] LABS: LEUKOCYTE ESTERASE UR AUTO RFX TRACE (NEGATIVE); WBC, URINE AUTO RFX 46 /HPF (0-3)
[2018-02-20 17:30] LABS: ANION GAP 12 MEQ/L (8-16); BLOOD UREA NITROGEN 16 MG/DL (7-18); CALCIUM LEVEL 8.2 MG/DL (8.5-10.1); CARBON DIOXIDE LEVEL 21 MEQ/L (21-32); CHLORIDE LEVEL 108 MEQ/L (98-107); GLOMERULAR FILTRATION RATE > 60.0 (>51); GLUCOSE, FASTING 92 MG/DL (70-100); POTASSIUM SERUM 3.8 MEQ/L (3.5-5.1); SODIUM LEVEL 141 MEQ/L (136-145)
[2018-02-20 17:34] LABS: LACTIC ACID SEPSIS PROTOCOL 0.8 MMOL/L (0.4-2.0)
[2018-02-20] MEDS: cefTRIAXone SOD 1 GM in D5W MINI-BAG PLUS 50 ML IV (18:43)
== END 2018-02-20 19:20 | disposition home or self-care (01) ==
LOC: M ED 15:46
DX: N39.0 Urinary tract infection, site not specified (principal); Z87.442 Personal history of urinary calculi; Z87.440 Personal history of urinary (tract) infections; Z98.890 Other specified postprocedural states; Z79.2 Long term (current) use of antibiotics
CPT/HCPCS: J2270

== ENCOUNTER → 2018-02-24 | Outpatient (CLI) | payer BC ==
[2018-02-24 15:14] LABS: INR 0.92; PROTHROMBIN TIME 12.4 SECONDS (12.4-14.5)
[2018-02-24 15:15] LABS: PARTIAL THROMBOPLASTIN TIME 31.2 SECONDS (26.8-37.9)
== END ==
LOC: M SMT 12:11
DX: N20.0 Calculus of kidney (principal)
CPT/HCPCS: 85610

== ENCOUNTER 2018-02-26 10:44 | Day surgery (SDC) | payer BC ==
[2018-02-26] MEDS ORDERED: LIDOCAINE 1% MDV 20ML VIAL SQ (11:00)
[2018-02-26] MEDS ORDERED: ceFAZolin 2 GM/D5W 50 ML IV BAG (J0690 PER 500MG) As Ordered (11:10)
[2018-02-26] MEDS: LR 1,000 ML IV (11:13)
[2018-02-26] MEDS ORDERED: CONRAY-60 60% 50ML VIAL (Q9961) As Ordered (12:42)
[2018-02-26] MEDS ORDERED: dexameTHASONE 4 MG/ML 1ML VIAL (J1100) As Ordered (12:43)
[2018-02-26] MEDS ORDERED: MIDAZOLAM INJ 2 MG/2 ML VIAL (J2250) As Ordered (12:43)
[2018-02-26] MEDS ORDERED: ONDANSETRON 4MG/2ML VIAL (J2405) As Ordered (12:43)
[2018-02-26] MEDS ORDERED: fentaNYL 250 MCG/5 ML INJECTION (J3010) As Ordered (12:43)
[2018-02-26] MEDS ORDERED: LIDOCAINE 2% INJ 100 MG/5 ML SDV (FOR ANES.) As Ordered (12:43)
[2018-02-26] MEDS ORDERED: PROPOFOL 200 MG/20 ML VIAL As Ordered (12:43)
[2018-02-26] MEDS ORDERED: ONDANSETRON 4MG/2ML VIAL (J2405) IV (14:45)
[2018-02-26] MEDS ORDERED: NORCO, ANEXSIA 5/325MG TABLET (HYDROcodone/ACETAMINOPHEN) PO (14:45)
[2018-02-26] MEDS ORDERED: LR 1,000 ML IV (14:45)
== END 2018-02-26 15:23 | disposition home or self-care (01) ==
LOC: M SDC 10:44
DX: N20.2 Calculus of kidney with calculus of ureter (principal); F41.9 Anxiety disorder, unspecified; D50.9 Iron deficiency anemia, unspecified; E55.9 Vitamin D deficiency, unspecified; F32.9 Major depressive disorder, single episode, unspecified; Z79.899 Other long term (current) drug therapy; Z87.440 Personal history of urinary (tract) infections; Z78.0 Asymptomatic menopausal state
CPT/HCPCS: 52352

== ENCOUNTER → 2018-03-06 | Outpatient (REF) | payer BC ==
[2018-03-06 17:29] LABS: CALCIUM LEVEL 8.3 MG/DL (8.5-10.1)
[2018-03-06 17:37] LABS: PTH INTACT 52.6 PG/ML (18.5-88.0)
== END ==
LOC: M LABDRAW1 14:42
DX: E21.3 Hyperparathyroidism, unspecified (principal); E55.9 Vitamin D deficiency, unspecified
CPT/HCPCS: 82310

== ENCOUNTER → 2018-03-06 | Outpatient (REF) | payer BC ==
[2018-03-06 17:08] LABS: APPEARANCE, URINE CLOUDY (CLEAR); BACTERIA, URINE AUTO NEGATIVE (NEGATIVE); BILIRUBIN, URINE AUTO NEGATIVE (NEGATIVE); BLOOD, URINE BLOOD NEGATIVE (NEGATIVE); CALCIUM OXALATE CRYSTALS LARGE; COLOR, URINE YELLOW (YELLOW); GLUCOSE, URINE (UA) AUTO NEGATIVE (NEGATIVE); KETONE, URINE AUTO NEGATIVE (NEGATIVE); LEUKOCYTE ESTERASE, URINE AUTO NEGATIVE (NEGATIVE); MUCUS, URINE LARGE (NEGATIVE); NITRITE, URINE AUTO NEGATIVE (NEGATIVE); PROTEIN, URINE AUTO NEGATIVE (NEGATIVE); RBC, URINE AUTO 4 /HPF (0-3); SPECIFIC GRAVITY URINE AUTO 1.023 (1.002-1.035); SQUAMOUS EPITHELIAL CELL UR AU 3 /HPF (0-6); UROBILINOGEN, URINE AUTO 0.2 mg/dL (0.0-2.0); WBC, URINE AUTO 7 /HPF (0-3)
== END ==
LOC: M LABDRAW1 14:41
DX: N20.1 Calculus of ureter (principal)
CPT/HCPCS: 81001

== ENCOUNTER → 2018-07-14 | Outpatient (REF) | payer BC | LOC: M SFHCPLAZ 07-15 13:25 | DX: R10.9 Unspecified abdominal pain (principal) | CPT/HCPCS: 87086 ==

== ENCOUNTER → 2018-07-30 | Outpatient (CLI) | payer BC | LOC: M RAD 16:16 | DX: N20.0 Calculus of kidney (principal); R10.9 Unspecified abdominal pain | CPT/HCPCS: 74176 ==

== ENCOUNTER → 2018-08-05 | Outpatient (REF) | payer BC ==
[2018-08-06 14:13] LABS: POTASSIUM RANDOM URINE 47.7 MEQ/L
== END ==
LOC: M LAB REF 13:40
DX: E87.6 Hypokalemia (principal)
CPT/HCPCS: 84133

== ENCOUNTER → 2019-04-01 | Outpatient (CLI) | payer BC ==
[~2019-04-01] MED LIST changes: +CIPR-249 PO; -CONRAY-60 60% 50ML VIAL (Q9961) As Ordered ONE; +FLOM0.4C39 PO; -GABA-282; +GABA-843; +HAIR1TAB5 PO; +HYDR-3715 PO; +IBUP-1114 PO; +KETO10TAB PO; +OXYB5TAB10 PO; +OXYC1TAB23 PO; +PYRI1TAB5 PO; +TAMSULOSIN; +TYLE325T5 PO; +ZOFR4TAB14 PO
== END ==
LOC: M LAB 13:53
PROVIDERS: ATTEND Nurse Practitioner Family
DX: E21.3 Hyperparathyroidism, unspecified (principal)

== ENCOUNTER → 2019-06-11 | Outpatient (REF) | payer BC ==
[2019-06-11 17:43] LABS: PERCENT SATURATION 11.2 % (13.2-45.0)
== END ==
LOC: M LAB REF 16:45
PROVIDERS: ATTEND Nurse Practitioner Family
DX: D50.9 Iron deficiency anemia, unspecified (principal)

== ENCOUNTER → 2019-07-08 | Outpatient (REF) | payer BC | LOC: M SFHCWAGY 10:19 | PROVIDERS: ATTEND Nurse Practitioner Adult Health | DX: Z12.4 Encounter for screening for malignant neoplasm of cervix (principal) ==

== ENCOUNTER → 2020-04-12 | Outpatient (REF) | payer BC ==
[2020-05-28 07:15] LABS: PTH INTACT 24.5 PG/ML (18.5-88.0); TOTAL 25(OH) VITAMIN D 25.2 NG/ML (30.0-100.0)
== END ==
LOC: M PLALAB 14:35
PROVIDERS: ATTEND Nurse Practitioner Family
DX: E55.9 Vitamin D deficiency, unspecified (principal); E21.3 Hyperparathyroidism, unspecified; E83.52 Hypercalcemia

== ENCOUNTER → 2020-10-01 | Outpatient (CLI) | payer BC ==
[~2020-10-01] MED LIST changes: +ALLO100T PO; +AMIL5TAB4 PO; +CITA40TA6 PO; +D3 M1CAP2 PO; +GABA-282; +GABA-282 PO; -GABA-843; +POTA4.25 PO; +VITA1TAB61 PO
== END ==
LOC: M LABSMTC 08:32
PROVIDERS: ATTEND Anesthesiology
DX: Z01.812 Encounter for preprocedural laboratory examination (principal); Z20.822 Contact with and (suspected) exposure to COVID-19

== ENCOUNTER 2020-10-06 10:11 | Day surgery (SDC) | payer BC ==
[~2020-10-06] VITALS: Ht 157.5 cm; Wt 67.6 kg
[~2020-10-06 10:11] MED LIST changes: +NS 1,000 ML IV ONE
--- OUTSIDE RECORDS SUMMARY | 2020-10-06 10:15 | CCD ---
Author Author [facility] Organization [facility] Address Unknown Phone Unavailable Care Team Providers Care Mill Laborer Name Role Phone DAT B LIONEL ASSOCIATE PROFESSOR OF ART Unavailable Unavailable COOK, B LIONEL ASSOCIATE PROFESSOR OF ART Unavailable Unavailable COOK, B LIONEL ASSOCIATE PROFESSOR OF ART Unavailable Unavailable COOK, B LIONEL ASSOCIATE PROFESSOR OF ART Unavailable Unavailable COOK, B LIONEL ASSOCIATE PROFESSOR OF ART Unavailable Unavailable COOK, B LIONEL ASSOCIATE PROFESSOR OF ART Unavailable Unavailable COOK, B LIONEL ASSOCIATE PROFESSOR OF ART Unavailable Unavailable COOK, B LIONEL ASSOCIATE PROFESSOR OF ART Unavailable Unavailable COOK, B LIONEL ASSOCIATE PROFESSOR OF ART Unavailable Unavailable COOK, B LIONEL ASSOCIATE PROFESSOR OF ART Unavailable Unavailable COOK, B LIONEL ASSOCIATE PROFESSOR OF ART Unavailable Unavailable COOK, B LIONEL ASSOCIATE PROFESSOR OF ART Unavailable Unavailable COOK, B LIONEL ASSOCIATE PROFESSOR OF ART Unavailable Unavailable COOK, B LIONEL ASSOCIATE PROFESSOR OF ART Unavailable Unavailable COOK, B LIONEL ASSOCIATE PROFESSOR OF ART Unavailable Unavailable COOK, B LIONEL ASSOCIATE PROFESSOR OF ART Unavailable Unavailable COOK, B LIONEL ASSOCIATE PROFESSOR OF ART Unavailable Unavailable COOK, B LIONEL ASSOCIATE PROFESSOR OF ART Unavailable Unavailable COOK, B LIONEL ASSOCIATE PROFESSOR OF ART Unavailable Unavailable COOK, B LIONEL ASSOCIATE PROFESSOR OF ART Unavailable Unavailable COOK, B LIONEL ASSOCIATE PROFESSOR OF ART Unavailable Unavailable COOK, B LIONEL ASSOCIATE PROFESSOR OF ART Unavailable Unavailable COOK, B LIONEL ASSOCIATE PROFESSOR OF ART Unavailable Unavailable COOK, B LIONEL ASSOCIATE PROFESSOR OF ART Unavailable Unavailable COOK, B LIONEL ASSOCIATE PROFESSOR OF ART Unavailable Unavailable COOK, B LIONEL ASSOCIATE PROFESSOR OF ART Unavailable Unavailable COOK, B LIONEL ASSOCIATE PROFESSOR OF ART Unavailable Unavailable COOK, B LIONEL ASSOCIATE PROFESSOR OF ART Unavailable Unavailable COOK, B LIONEL ASSOCIATE PROFESSOR OF ART Unavailable Unavailable COOK, B LIONEL ASSOCIATE PROFESSOR OF ART Unavailable Unavailable COOK, B LIONEL ASSOCIATE PROFESSOR OF ART Unavailable Unavailable COOK, B LIONEL ASSOCIATE PROFESSOR OF ART Unavailable Unavailable COOK, B LIONEL ASSOCIATE PROFESSOR OF ART Unavailable Unavailable COOK, B LIONEL ASSOCIATE PROFESSOR OF ART Unavailable Unavailable COOK, B LIONEL ASSOCIATE PROFESSOR OF ART Unavailable Unavailable COOK, B LIONEL ASSOCIATE PROFESSOR OF ART Unavailable Unavailable COOK, B LIONEL ASSOCIATE PROFESSOR OF ART Unavailable Unavailable COOK, B LIONEL ASSOCIATE PROFESSOR OF ART Unavailable Unavailable COOK, B LIONEL ASSOCIATE PROFESSOR OF ART Unavailable Unavailable COOK, B LIONEL ASSOCIATE PROFESSOR OF ART Unavailable Unavailable COOK, B LIONEL ASSOCIATE PROFESSOR OF ART Unavailable Unavailable COOK, B LIONEL ASSOCIATE PROFESSOR OF ART Unavailable Unavailable COOK, B LIONEL ASSOCIATE PROFESSOR OF ART Unavailable Unavailable COOK, B LIONEL ASSOCIATE PROFESSOR OF ART Unavailable Unavailable COOK, B LIONEL ASSOCIATE PROFESSOR OF ART Unavailable Unavailable COOK, B LIONEL ASSOCIATE PROFESSOR OF ART Unavailable Unavailable COOK, B LIONEL ASSOCIATE PROFESSOR OF ART Unavailable Unavailable COOK, B LIONEL ASSOCIATE PROFESSOR OF ART Unavailable Unavailable COOK, B LIONEL ASSOCIATE PROFESSOR OF ART Unavailable Unavailable COOK, B LIONEL ASSOCIATE PROFESSOR OF ART Unavailable Unavailable COOK, B LIONEL ASSOCIATE PROFESSOR OF ART Unavailable Unavailable COOK, B LIONEL ASSOCIATE PROFESSOR OF ART Unavailable Unavailable COOK, B LIONEL ASSOCIATE PROFESSOR OF ART Unavailable Unavailable COOK, B LIONEL ASSOCIATE PROFESSOR OF ART Unavailable Unavailable COOK, B LIONEL ASSOCIATE PROFESSOR OF ART Unavailable Unavailable COOK, B LIONEL ASSOCIATE PROFESSOR OF ART Unavailable Unavailable COOK, B LIONEL ASSOCIATE PROFESSOR OF ART Unavailable Unavailable COOK, B LIONEL ASSOCIATE PROFESSOR OF ART Unavailable Unavailable COOK, B LIONEL ASSOCIATE PROFESSOR OF ART Unavailable Unavailable COOK, B LIONEL ASSOCIATE PROFESSOR OF ART Unavailable Unavailable COOK, B LIONEL ASSOCIATE PROFESSOR OF ART Unavailable Unavailable COOK, B LIONEL ASSOCIATE PROFESSOR OF ART Unavailable Unavailable COOK, B LIONEL ASSOCIATE PROFESSOR OF ART Unavailable Unavailable COOK, B LIONEL ASSOCIATE PROFESSOR OF ART Unavailable Unavailable Re-disclosure Warning The records that you are about to access may contain information from federally-assisted alcohol or drug abuse programs. If such information is present, then the following federally mandated warning applies: This information has been disclosed to you from records protected by federal confidentiality rules (42 CFR part 2). The federal rules prohibit you from making any further disclosure of this information unless further disclosure is expressly permitted by the written consent of the person to whom it pertains or as otherwise permitted by 42 CFR part 2. A general authorization for the release of medical or other information is NOT sufficient for this purpose. The Federal rules restrict any use of the information to criminally investigate or prosecute any alcohol or drug abuse patient.The records that you are about to access may contain highly sensitive health information, the redisclosure of which is protected by Article 27-F of the [facility] Public Health law. If you continue you may have access to information: Regarding HIV / AIDS; Provided by facilities licensed or operated by the [facility] Office of Mental Health; or Provided by the [facility] Office for People With Developmental Disabilities. If such information is present, then the following [facility] mandated warning applies: This information has been disclosed to you from confidential records which are protected by state law. State law prohibits you from making any further disclosure of this information without the specific written consent of the person to whom it pertains, or as otherwise permitted by law. Any unauthorized further disclosure in violation of state law may result in a fine or assisted sentence or both. A general authorization for the release of medical or other information is NOT sufficient authorization for further disc losure. Family History Family Member Name Family Member Gender Family Member Status Date o f Status Description Data Source(s) Unknown Male Problem MEDENT ([facility]) Unknown Unknown Problem MEDENT ([facility], ) patients nephew (brother's son) stage 3 colon ca diagnosed age 26 Encounters Encounter Providers Location Date Indications Data Source(s ) Unknown [address] [facility] [address] 08/10/2020 12:00:00 AM EST [facility]CW[facility] [place] [address] [facility] [address] 07/13/2020 12:00:00 AM EST eCW1 (Psychiatric hospital) [facility] [place] [address] [facility] [address] 07/13/2020 12:00:00 AM EST eCW1 (Psychiatric hospital) Outpatient Attender: LIONEL DAUGHERTY NP Physical Therapy 04/17/2020 0 1:15:00 PM EDT MED[facility] ([facility]) Unknown [address] [facility] [address] 03/20/2020 12:00:00 AM EDT eCW1 (Psychiatric hospital) [facility] [place] [address] [facility] [address] 11/06/2019 12:00:00 AM EST eCW1 ([facility] hospital) Medications Medication Brand Name Start Date Product Form Dose Route Admi nistrative Instructions Pharmacy Instructions Status Indications Reaction Description Data Source(s) Mupirocin 0.02 MG/MG Topical Ointment Mupirocin 2 % Mupiroci n 2 % 08/10/2020 12:00:00 AM EST 1.0 {application} active Mupirocin 2 % eCW1 ([facility]) Cephalexin 500 MG Oral Capsule [Keflex] Keflex 500 MG Keflex 500 MG 07/13/2020 12:00:00 AM EST 1.0 {capsule} active K eflex 500 MG eCW1 ([facility]) Fluconazole 150 MG Oral Tablet [Diflucan] Diflucan 150 MG Di flucan 150 MG 07/13/2020 12:00:00 AM EST 1.0 {tablet} active Diflucan 150 MG eCW1 ([facility]) Cephalexin 500 MG Oral Capsule [Keflex] Keflex 500 MG Keflex 500 MG 07/13/2020 12:00:00 AM EST 1.0 {capsule} active K eflex 500 MG eCW1 ([facility]) Fluconazole 150 MG Oral Tablet [Diflucan] Diflucan 150 MG Di flucan 150 MG 07/13/2020 12:00:00 AM EST 1.0 {tablet} active Diflucan 150 MG eCW1 ([facility]) Insurance Providers Payer name Policy type / Coverage type Policy ID Covered democrat ID Covered democrat's relationship to hernandez Policy Hernandez Plan Information BCBS [place] PPO 302/307 [id number] HU2 [id number] [employer] [place] 302/307 [id number] [place] [place] 302/307 [id number] [id number] ANSI-Commercial [id number] ANSI-Commercial [id number] EXCELLUS BCBS B [id number] P VYA [id number] ANSI-Commercial [id number] ANSI-Commercial [id number] ANSI-Commercial [id number] ANSI-Commercial [id number] ANSI-Commercial [id number] EXCELLUS BCBS PI PI EXCELLUS BCBS [id number] Spo VYA [id number] ANSI-Commercial [id number] [employer] (pr) Medigap Part B [id number] Family Dependent [id number] BS [place] Commercial [id number] Family Dependent [id number] BCBS [place] PPO 302/307 [id number] HU2 [id number] [employer] (pr) Commercial [id number] Family Dependent [id number] POMCO [id number] Maria Esther [id number] POMCO [id number] Maria Esther [id number] POM[employer] [id number] HU2 [id number] P[employer] [id number] HU2 [id number] [employer] [id number] Maria Esther [id number] [employer] BCBS Medigap Part B [id number] Family Dependent [id number] [employer] [facility] (HMO) [id number] Fa elissa Dependent [id number] [employer] PPO O [id number] S [id number] [employer] [id number] HU2 [id number] [employer] [id number] HU2 [id number] [employer]BS [place] PPO 302/307 [id number] HU2 [id number] EXCELLUS BCBS P [id number] P VYS [id number] Problems, Conditions, and Diagnoses Code Display Name Description Problem Type Effective Dates Data Source(s) L80 [id number] Vitiligo Problem 07/13/2020 12:00:00 AM ES T eCW1 ([facility]) Results ID Date Data Source [id number] 10/01/2020 08:20:00 AM EST [facility] Name Value Range Interpretation Code Description Data Gloria rce(s) Supporting Document(s) SARS coronavirus 2 RNA Not Detected [facility] [place] This lab was ordered by [facility] and reported by [facility]. ID Date Data Source [id number] 04/12/2020 02:06:00 PM EDT MEDSARATH ([facility] Name Value Range Interpretation Code Description Data Gloria rce(s) Supporting Document(s) Parathyrin.intact [Mass/volume] in Serum or Plasma 24.5 pg/mL 18.5-88 .0 MEDENT ([facility] ) Calcidiol [Mass/volume] in Serum or Plasma 25.2 ng/mL 30.0-100.0 MED[facility] ([facility] ) Calcium [Mass/volume] in Serum or Plasma 9.0 mg/dL 8.5-10.1 MED[facility] ([facility] ) Procedure Social History Code Duration Value Status Description Data Source(s ) Smoking 07/15/2020 12:00:00 AM EST Never Smoker completed Never S moker eCW1 ([facility]) Smoking 07/15/2020 12:00:00 AM EST Never Smoker completed Never S moker eCW1 ([facility]) Smoking 04/17/2020 12:00:00 AM EDT Never Smoked Cigarettes com pleted Never Smoked Cigarettes MEDENT ([facility]) Vital Signs ID Date Data Source UNK Name Value Range Interpretation Code Description Data Source(s) Diastolic blood pressure 86 mm[Hg] 86 mm[Hg] eCW1 ([facility]) Systolic blood pressure 114 mm[Hg] 114 mm[Hg] e CW1 ([facility]) Body temperature 98.2 [degF] 98.2 [degF] eCW1 ( [facility]) Respiratory rate 18 /min 18 /min eCW1 ([facility]) Heart rate 90 /min 90 /min eCW1 ([facility]) Body mass index (BMI) [Ratio] 27.98 kg/m2 27.98 kg/m2 W1 ([facility]) Body height [in_i] eCW1 ([facility]) Body weight 153 [lb_av] 153 [lb_av] eCW1 ([facility]) Oxygen saturation in Arterial blood by Pulse oximetry 95 % 95 % MEDENT ([facility]) Body mass index (BMI) [Ratio] 27.9 kg/m2 27.9 k g/m2 MED[facility] ([facility] ) Body weight 152.38 [lb_av] 152.38 [lb_av] MEDEN T ([facility]) Body height 62 [in_i] 62 [in_i] MEDENT ([facility]) 5'2" Heart rate 113 /min 113 /min MEDENT ([facility]) Diastolic blood pressure 70 mm[Hg] 70 mm[Hg] [facility] ([facility]) Systolic blood pressure 116 mm[Hg] 116 mm[Hg] M EDENT ([facility]) Patient Treatment Plan of Care Planned Activity Planned Date Details Description Data Source (s) Mupirocin 0.02 MG/MG Topical Ointment 08/10/2020 12:00:00 AM EST eCW1 ([facility]) Fluconazole 150 MG Oral Tablet [Diflucan] 07/13/2020 12:00:00 AM ES T eCW1 ([facility]) Cephalexin 500 MG Oral Capsule [Keflex] 07/13/2020 12:00:00 AM EST eCW1 ([facility]) Fluconazole 150 MG Oral Tablet [Diflucan] 07/13/2020 12:00:00 AM ES T eCW1 ([facility]) Cephalexin 500 MG Oral Capsule [Keflex] 07/13/2020 12:00:00 AM EST eCW1 ([facility])
--- OUTSIDE RECORDS SUMMARY | 2020-10-06 10:15 | CCD ---
Author Author [facility] Organization [facility] Address Unknown Phone Unavailable Care Team Providers Care Foreign Clerk Name Role Phone Poonam Molina Unavailable PROBLEMS Type Condition ICD9-CM Code MTP33-DC Code Onset Dates Condition S tatus SNOMED Code Notes Problem Premenopausal patient N95.9 Active 27984239 Problem Vitamin D deficiency E55.9 Active 08366276 Problem Anxiety F41.9 Active 47270593 Problem Wellness examination Z00.00 Active 612783401 Problem TMJ (temporomandibular joint disorder) M26.60 A ctive 25694963 Problem Hypercholesterolemia E78.00 Active 26202664 Problem History of eustachian tube dysfunction Z86.69 A ctive 113837543 Problem Hypercalcemia E83.52 Active 26051310 Problem Acute kidney injury N17.9 Active 60250298 Problem Ureteral stone with hydronephrosis N13.2 Activ e 824351188 Problem Vaginal spotting N93.9 Active 340226004 Problem Kidney stones N20.0 Active 86884997 Problem Vitiligo L80 Active 00682979 Problem BMI 28.0-28.9,adult Z68.28 Active 274353327 Problem Kidney stone N20.0 Active 94881808 Problem Hyperparathyroidism E21.3 Active 45527419 Problem Restless legs G25.81 Active 40826507 Problem Seasonal allergies J30.2 Active 546579016 ALLERGIES No Known Allergies ENCOUNTERS from 1965 to 2020-08-11 Encounter Location Date Provider Diagnosis [address] [address] Aug, Poonam Servage IMMUNIZATIONS Vaccine Route Administration Date Status Influenza (Pharmacy Given) Unknown Jun 16, 2018 Admin istered Influenza (18 yrs & older) Flublok IM Intramuscular Jul 08, 2019 Administered Influenza (6mo & up) Fluzone IM Intramuscular Jun 02, 2017 Ad ministered SOCIAL HISTORY Tobacco Use: Social History Observation Description Date Details (start date - stop date) Never Smoker Sex Assigned At : Social History Observation Description Sex Assigned At Unknown Audit Question Answer Notes Total Score: 0 Interpretation: Alcohol Education Sexual Hx: Question Answer Notes Had sex in the last 12 months (vaginal, oral, or anal)? Yes Have you ever had an STD? No Prevention Strategies discussed: Other with Men only Use protection? No Drug and Alcohol Question Answer Notes Total Score: 0 Interpretation: No problems reported Alcohol Screening: Question Answer Notes Did you have a drink containing alcohol in the past year? No Points 0 Interpretation Negative Tobacco Use: Question Answer Notes Are you a: never smoker REASON FOR REFERRAL No Information VITAL SIGNS No information MEDICATIONS Medication SIG (Take, Route, Frequency, Duration) Notes Start Da te End Date Status Keflex 500 MG 1 capsule Orally qid for 10 days Jul, 0 Active Mupirocin 2 % 1 application topically tid to leg wound for 10 days Aug, Active Tamsulosin HCl 0.4 MG 1 capsule Orally Once a day as directed for kidney stone for 30 day(s) Jul, Active Gabapentin 300 1 capsule Orally Once a day at bedtime for 30 Active Citalopram Hydrobromide 40 mg 1 tablet Orally Once a day for 90 days Active Clotrimazole-Betamethasone 1-0.05 % 1 application to a ffected area topically Twice a day to axillary region for 14 day(s) Aug, Active Allopurinol 100 MG 1 tablet Orally Once a day Active Topiramate 25 mg 1 tablet Orally Twice a day for 90 days Active Fluticasone Propionate 50 MCG/ACT 1 spray in each nost ril Nasally Once a day for 30 day(s) Active Potassium Citrate ER 15 MEQ (1620 MG) 1 tablet with meals Orally twice daily Active Clobetasol Propionate 0.05 % 1 application topically t o right axillary region Twice a day for 10 Active Fluticasone Propionate 50 MCG/ACT 1 SPRAY IN EACH NOST RIL ONCE A DAY NASALLY 30 DAY(S) for 90 Active Diflucan 150 MG 1 tablet Orally as directed 1 today and 1 in 10days for 2 days Jul, Active PROCEDURES No Information RESULTS No Results REASON FOR VISIT boil on buttucks MEDICAL (GENERAL) HISTORY Type Description Date Medical History Anxiety Medical History Iron Defeiciency Anemia Medical History History of Left TMJ Medical History Vitamin D Deficiency Medical History Kidney Stones Medical History primary hyperparathyroidism Surgical History 08/1992 Surgical History 06/1999 Surgical History broken nose surgery 1993 Surgical History cysto stent removal 11/20/16 Surgical History cysto stent removal ureteroscopy 7 Surgical History STENT PLACEMENT = EMANUEL 02/16/2018 Surgical History PARATHYROID TUMOR REMOVED Dr. Maria Del Carmen Syed 09/2017 Surgical History colonoscopy pebbles Martines w-up due 04/30/2018- negative 5 year follow up 202209/25/[address] Abdoulaye gee rplastic polyp x2, small tubular adenoma 08/01/17 Hospitalization History [facility] 11/15 Hospitalization History KIDNEY INFECTION,STENT PLACEMENT Goals Section No Information Health Concerns No Information MEDICAL EQUIPMENT No Information MENTAL STATUS No Information FUNCTIONAL STATUS No Information ASSESSMENTS No Information PLAN OF TREATMENT Medication Medication Name Sig Start Date Stop Date Diflucan 150 MG 1 tablet Orally as directed 1 today and 1 in 10days for 2 days Jul, Mupirocin 2 % 1 application topically tid to leg wound for 10 days Aug, Fluticasone Propionate 50 MCG/ACT 1 spray in each nost ril Nasally Once a day for 30 day(s) Keflex 500 MG 1 capsule Orally qid for 10 days Jul, Next Appt Details Provider Name:Poonam Molina, 03:00:00 PM, [address] [place], [address], Insurance Providers Payer Name Payer Address Payer Phone Insured Name Patient Relati onship to Insured Coverage Start Date Coverage End Date [employer] PPO [id number] [facility] Ongage [facility] [place] [id number] Laith Harvey
--- OUTSIDE RECORDS SUMMARY | 2020-10-06 10:15 | CCD ---
Author Author [facility] Organization [facility] Address Unknown Phone Unavailable Care Team Providers Care Coal Trammer Name Role Phone Poonam Molina Unavailable PROBLEMS Type Condition ICD9-CM Code [id number] Code Onset Dates Condition S tatus SNOMED Code Notes Problem Premenopausal patient N95.9 Active 15760321 Problem Vitamin D deficiency E55.9 Active 24298983 Problem Anxiety F41.9 Active 45033287 Problem Wellness examination Z00.00 Active 215505363 Problem TMJ (temporomandibular joint disorder) M26.60 A ctive 62119266 Problem Hypercholesterolemia E78.00 Active 69101332 Problem History of eustachian tube dysfunction Z86.69 A ctive 713722549 Problem Hypercalcemia E83.52 Active 48045287 Problem Acute kidney injury N17.9 Active 86697088 Problem Ureteral stone with hydronephrosis N13.2 Activ e 633381836 Problem Vaginal spotting N93.9 Active 274922362 Problem Kidney stones N20.0 Active 45069080 Problem Vitiligo L80 Active 65401880 Problem BMI 28.0-28.9,adult Z68.28 Active 150607253 Problem Kidney stone N20.0 Active 62287285 Problem Hyperparathyroidism E21.3 Active 10532046 Problem Restless legs G25.81 Active 75621164 Problem Seasonal allergies J30.2 Active 376850025 ALLERGIES No Known Allergies ENCOUNTERS from 1965 to 2020-07-17 Encounter Location Date Provider Diagnosis [address] [id number] Jul, Poonam Servage Wellness examination Z00.00 ; Anxiety F4 1.9 ; Premenopausal patient N95.9 ; TMJ (temporomandibular joint disorder) M26.60 ; Vitamin D deficiency E55.9 ; Kidney stones N20.0 ; Restless legs G25.81 ; Seasonal allergies J30.2 ; Vitiligo L80 ; Screening mammogram, encounter for Z12.31 ; Immunization refused Z28.21 ; Boil of buttock L02.32 ; Hypercalcemia E83.52 and Screening for lipid disorders Z13.220 IMMUNIZATIONS Vaccine Route Administration Date Status Influenza [...] REASON FOR REFERRAL No Information VITAL SIGNS Weight 153 lbs Jul, Height 5'2" in Jul, BMI 27.98 kg/m2 Jul, Heart Rate 90 /min Jul, Respiratory Rate 18 /min Jul, Temperature 98.2 degrees Fahrenheit Jul, Oximetry 99% Jul, Blood pressure systolic 114 mm Hg Jul, Blood pressure diastolic 86 mm Hg Jul, MEDICATIONS Medication SIG (Take, Route, Frequency, Duration) Notes Start Da te End Date Status Potassium Citrate ER 15 MEQ (1620 MG) 1 tablet with meals Orally twice daily Active Citalopram Hydrobromide 40 mg 1 tablet Orally Once a day for 90 days Active Gabapentin 300 1 capsule Orally Once a day at bedtime for 30 Active Tamsulosin HCl 0.4 MG 1 capsule Orally Once a day as directed for kidney stone for 30 day(s) Jul, Active Clobetasol Propionate 0.05 % 1 application topically t o right axillary region Twice a day for 10 Active Clotrimazole-Betamethasone 1-0.05 % 1 application to a ffected area topically Twice a day to axillary region for 14 day(s) Aug, Active Fluticasone Propionate 50 MCG/ACT 1 SPRAY IN EACH NOST RIL ONCE A DAY NASALLY 30 DAY(S) for 90 Active Keflex 500 MG 1 capsule Orally qid for 10 days Jul, 0 Active Topiramate 25 mg 1 tablet Orally Twice a day for 90 days Active Diflucan 150 MG 1 tablet Orally as directed 1 today and 1 in 10days for 2 days Jul, Active Allopurinol 100 MG 1 tablet Orally Once a day Active Fluticasone Propionate 50 MCG/ACT 1 spray in each nost ril Nasally Once a day for 30 day(s) Active PROCEDURES No Information RESULTS No Results REASON FOR VISIT 1 year MEDICAL (GENERAL) HISTORY Type Description Date Medical [...] x2, small tubular adenoma 08/01/17 Hospitalization History [facility] 11/15 Hospitalization History KIDNEY INFECTION,STENT PLACEMENT Goals Section No Information Health Concerns No Information MEDICAL EQUIPMENT No Information MENTAL STATUS No Information FUNCTIONAL STATUS No Information ASSESSMENTS Encounter Date Diagnosis Assessment Notes Treatment Notes Treatm ent Clinical Notes Jul, Wellness examination (ICD-10 - Z00.00) age appropriate anticipatory guidance given, per USPSTF recommendations; immunizations up to date. discussed plans for implementing improvement in identified areas Jul, Anxiety (ICD-10 - F41.9) continues to us celexa with effect, doses not it changed no suicidal thoughts Jul, Premenopausal patient (ICD-10 - N95.9) feels topamax, is helping would like to stay on medication Jul, TMJ (temporomandibular joint disorder) (ICD-10 - M26.60) states she has been to the dentist seen by [facility], possible referral to [place] was discussed by their service holding off for now., refuses, uses neurontin only when it gets really bad. does not want a higher dose,feels topamax is helping Jul, Vitamin D deficiency (ICD-10 - E55.9) continues to take replacement [address] Owens's advice vitamin D on 07/09/2017 was 26.6 wilton to 40 to 11/19/2017 03/06/18=32 IPTH 52.6, Calcium 8.3 Jul, Kidney stones (ICD-10 - N20.0) history of 2 kidney stones, treated by Urology Service, calcium ocalate stone , low oxalate diet recommended by urology. In January she had an 8 have M kidney stone causing hydroma nephrosis. Stent was placed stone was not removed developed a UTI had to be placed on antibiotics. improved today Jul, Restless legs (ICD-10 - G25.81) discussed starting requip wants to hold off for now. Jul, Seasonal allergies (ICD-10 - J30.2) States she uses [id number] Xyzal, for her seasonal allergies, she had eyedrops, but ran out, discussed using Zaditor [id number]-[id number] discussed nasal spray, wants to see if it is covered. Jul, Vitiligo (ICD-10 - L80) Jul, Screening mammogram, encounter for (ICD-10 - Z12 .31) Jul, Immunization refused (ICD-10 - Z28.21) flu vaccine at [facility] Jul, Boil of buttock (ICD-10 - L02.32) warm soaks advised, will treat with antibiotic if no improvement advised to call office Jul, Hypercalcemia (ICD-10 - E83.52) Jul, Screening for lipid disorders (ICD-10 - Z13.220) PLAN OF TREATMENT Medication Medication Name Sig Start Date Stop Date Keflex 500 MG 1 capsule Orally qid for 10 days Jul, Diflucan 150 MG 1 tablet Orally as directed 1 today and 1 in 10days for 2 days Jul, Fluticasone Propionate 50 MCG/ACT 1 spray in each nost ril Nasally Once a day for 30 day(s) Treatment Notes Assessment Notes Clinical Notes Wellness examination age appropriate ant icipatory guidance given, per USPSTF recommendations; immunizations up to date. discussed plans for implementing improvement in identified areas Anxiety continues to us wilfrid xa with effect, doses not it changed no suicidal thoughts Premenopausal patient feels topamax, is helping would like to stay on medication TMJ (temporomandibular joint disorder) s tates she has been to the dentist seen by [facility], possible referral to [place] was discussed by their service holding off for now., refuses, uses neurontin only when it gets really bad. does not want a higher dose,feels topamax is helping Vitamin D deficiency continues to take r eplacement [address] Owens's advice vitamin D on 07/09/2017 was 26.6 wilton to 40 to 11/19/2017 03/06/18=32 IPTH 52.6, Calcium 8.3 Kidney stones history of 2 kidney stones, treated by Urology Service, calcium ocalate stone , low oxalate diet recommended by urology.In January she had an 8 have M kidney stone causing hydroma nephrosis. Stent was placed stone was not removed developed a UTI had to be placed on antibiotics.improved today Restless legs discussed starting r equip wants to hold off for now. Seasonal allergies States she uses over -the-counter Xyzal, for her seasonal allergies, she had eyedrops, but ran out, discussed using Zaditor [id number]-yoignlm discussed nasal spray, wants to see if it is covered. [facility] advised, will treat with antibiotic if no improvement advised to call office Treatment Notes Test Name Order Date DIGITAL MAMMO SCREENING BILAT 2020-07-17 VITAMIN D 25-HYDROXY 2020-07-17 Comprehensive Metabolic Profile (CMP) 2020-07-17 LIPID PANEL (CARDIAC RISK) 2020-07-17 Next Appt Details Poonam 6 month follow up Reason: Provider Name:Poonam Molina, 03:00:00 PM, [address] [place], [address], Insurance Providers Payer Name Payer Address Payer Phone Insured Name Patient Relati onship to Insured Coverage Start Date Coverage End Date KATHY ROBERTS PPO [phone] [facility] [place]EN [place]ORES [facility] [place] [address] Laith Harvey t
[2020-10-06] MEDS ORDERED: propofoL 200 MG/20 ML VIAL As Ordered ONE (12:10)
--- NOTE | 2020-10-06 12:38 | ROOR ---
Patient Name: Carmen Rosado Procedure Date: 10/06/2020 12:06 PM Date of : 1965 Age: 55 Room: [facility] Gender: Female Note Status: Finalized Procedure: Colonoscopy Indications: High risk colon cancer surveillance: Personal history of colonic polyps Providers: Surendra STANFORD MD Referring MD: Poonam Molina NP Requesting Provider: Medicines: Monitored Anesthesia Care Complications: No immediate complications. Procedure: Pre-Anesthesia Assessment: - The heart rate, respiratory rate, oxygen saturations, blood pressure, adequacy of pulmonary ventilation, and response to care were monitored throughout the procedure. The Colonoscope was introduced through the anus and advanced to the terminal ileum, with identification of the appendiceal orifice and IC valve. The colonoscopy was performed without difficulty. The patient tolerated the procedure well. The quality of the bowel preparation was good. Findings: The perianal and digital rectal examinations were normal. A 5 mm polyp was found in the mid rectum. The polyp was sessile. The polyp was removed with a hot snare. Resection and retrieval were complete. A 7 mm polyoid/hemorrhoidal scar was found in the anus. The polyp was semi-sessile. Biopsies were taken with a cold forceps for histology. The exam was otherwise without abnormality on direct and retroflexion views. Impression: - One 5 mm polyp in the mid rectum, removed with a hot snare. Resected and retrieved. - One 7 mm polyp at the anus. Biopsied. - The examination was otherwise normal on direct and retroflexion views. Recommendation: - Telephone endoscopist for pathology results in 2 weeks. - Repeat colonoscopy in 3 - 5 years for surveillance based on pathology results. Procedure Code(s): --- Professional --- 18472, Colonoscopy, flexible; with removal of tumor(s), polyp(s), or other lesion(s) by snare technique 45941, 59, Colonoscopy, flexible; with biopsy, single or multiple Diagnosis Code(s): --- Professional --- K62.0, Anal polyp K62.1, Rectal polyp Z86.010, Personal history of colonic polyps CPT copyright 2019 [employer]. All rights reserved. The codes documented in this report are preliminary and upon member services representative review may be revised to meet current compliance requirements. Surendra Stanford MD Surendra STANFORD MD 10/06/2020 12:38:08 PM Electronically signed by Surendra STANFORD MD Number of Addenda: 0 Note Initiated On: 10/06/2020 12:06 PM Estimated Blood Loss: Estimated blood loss: none.
[2020-10-06 13:00] VITALS: BP 121/86
== END 2020-10-06 13:16 | disposition home or self-care (01) ==
LOC: M OPP 10:11
PROVIDERS: ATTEND Internal Medicine Gastroenterology
DX: Z12.11 Encounter for screening for malignant neoplasm of colon (principal); Z86.010 Personal history of colon polyps; Z80.0 Family history of malignant neoplasm of digestive organs; K62.1 Rectal polyp; F41.9 Anxiety disorder, unspecified; F32.9 Major depressive disorder, single episode, unspecified; E21.3 Hyperparathyroidism, unspecified; D64.9 Anemia, unspecified; G43.909 Migraine, unspecified, not intractable, without status migrainosus; Z79.899 Other long term (current) drug therapy; Z80.42 Family history of malignant neoplasm of prostate

== ENCOUNTER → 2020-10-16 | Outpatient (CLI) | payer BC ==
[~2020-10-16] MED LIST changes: -NS 1,000 ML IV ONE
== END ==
LOC: M PLALAB 14:02
PROVIDERS: ATTEND Nurse Practitioner Family
DX: E55.9 Vitamin D deficiency, unspecified (principal)

== ENCOUNTER → 2020-10-16 | Outpatient (REF) | payer BC | LOC: M PLALAB 16:42 | PROVIDERS: ATTEND Nurse Practitioner Family | DX: E55.9 Vitamin D deficiency, unspecified (principal) ==

== ENCOUNTER → 2020-10-17 | Outpatient (CLI) | payer BC ==
[2020-10-17 18:38] LABS: THYROID STIMULATING HORMONE 0.978 uIU/ML (0.358-3.740)
[2020-10-17 18:39] LABS: THYROID PEROXIDASE ANTIBODY 28.2 U/ML (<60.0)
== END ==
LOC: M PLALAB 15:41
PROVIDERS: ATTEND Internal Medicine Endocrinology, Diabetes & Metabolism
DX: L80 Vitiligo (principal)

== ENCOUNTER → 2020-11-20 | Outpatient (CLI) | payer BC ==
--- NOTE | 2020-11-20 16:36 | DEXAMM ---
INDICATION: HYPERPARATHYROIDISM. COMPARISON: None. TECHNIQUE: Bone density was measured using dual-energy x-ray absorptionmetry (DEXA). FINDINGS: AP SPINE L1-L4 BMD 0.954 g/cm2 Young Adult T-Score -1.9 Age Matched Z-Score -1.2. LT FEMUR, TOTAL BMD 0.756 g/cm2 Young Adult T-Score -2.0 Age Matched Z-Score -1.4. LT NECK BMD 0.741 g/cm2 Young Adult T-Score -2.1 Age Matched Z-Score -1.2. RT FEMUR, TOTAL BMD 0.756 g/cm2 Young Adult T-Score -2.0 Age Matched Z-Score -1.4. RT NECK BMD 0.746 g/cm2 Young Adult T-Score -2.1 Age Matched Z-Score -1 point. IMPRESSION: There is low bone density of the spine. There is low bone density of the left hip. There is low bone density of the right hip. FOLLOW-UP: Recommendation for the next bone density exam: 2 years. <Electronically signed by Edd Marina > 11/20/20 [id number]
== END ==
LOC: M WHC 14:53
PROVIDERS: ATTEND Internal Medicine Endocrinology, Diabetes & Metabolism
DX: E21.3 Hyperparathyroidism, unspecified (principal)

== ENCOUNTER 2021-03-22 11:50 | Day surgery (SDC) | payer BC ==
[~2021-03-22] VITALS: Ht 157.5 cm; Wt 70.3 kg
[2021-03-22 12:42] LABS: BASO # 0.1 10^3/uL (0.0-0.2); BASO % 0.6 % (0.0-1.0); EOS # 0.1 10^3/uL (0.0-0.5); EOS % 0.8 % (0.0-3.0); HEMATOCRIT 40.7 % (36.0-47.0); HEMOGLOBIN 12.5 g/dl (12.0-15.5); LYMPH # 0.9 10^3/uL (1.5-5.0); MEAN CORPUSCULAR HEMOGLOBIN 25.8 pg (27.0-33.0); MEAN CORPUSCULAR HGB CONC 30.7 g/dl (32.0-36.5); MEAN CORPUSCULAR VOLUME 83.9 fl (80.0-96.0); MONO # 0.5 10^3/uL (0.0-0.8); MONO % 5.1 % (2.0-8.0); NEUTROPHILS # 8.1 10^3/uL (1.5-8.5); NEUTROPHILS % 84.2 % (36.0-66.0); PLATELET COUNT, AUTOMATED 332 10^3/uL (150-450); RED BLOOD COUNT 4.85 10^6/uL (4.00-5.40); WHITE BLOOD COUNT 9.6 10^3/uL (4.0-10.0)
[2021-03-22 13:05] LABS: BILIRUBIN,DIRECT 0.1 MG/DL (0.0-0.2); BILIRUBIN,TOTAL 0.6 MG/DL (0.2-1.0); CALCIUM LEVEL 9.6 MG/DL (8.5-10.1); CREATININE FOR GFR 1.18 MG/DL (0.55-1.30); GLOMERULAR FILTRATION RATE 50.8 (>51); POTASSIUM SERUM 3.9 MEQ/L (3.5-5.1); TOTAL PROTEIN 7.6 GM/DL (6.4-8.2)
[2021-03-22] MEDS ORDERED: NS 1,000 ML IV ONE ×2 (14:00→21:05)
--- NOTE | 2021-03-22 14:27 | REP ---
INDICATION: low back pain, renal colic COMPARISON: 07/30/2018. TECHNIQUE: CT Scan of the abdomen and pelvis was performed without intravenous contrast. Sagittal and coronal reconstruction images performed. FINDINGS: Lung bases: Unremarkable. Liver: Grossly unremarkable. Gallbladder: Unremarkable. Spleen: Grossly unremarkable. Adrenals: Normal. Pancreas: Grossly unremarkable.. Kidneys: There is moderate right hydroureteronephrosis caused by a 9 mm calculus in the right ureter at the level of the sacrum. There is a punctate intrarenal calculus in the lower right kidney. There are 2 calculi in the upper left renal collecting system measuring 3 mm in diameter. There is no left hydronephrosis. Small and large bowel: Grossly unremarkable. Free fluid: None. Abdominal aorta: No aneurysm. Adenopathy: None. Appendix: Not inflamed. Osseous structures: Unremarkable. Pelvis: No mass. No bladder calculus seen. IMPRESSION: There is moderate right hydroureteronephrosis caused by a 9 mm calculus in the right ureter at the level of the sacrum. Subcentimeter intrarenal calculi bilaterally. <Electronically signed by Nathan Bermeo > 03/22/21 8225
--- NOTE | 2021-03-22 14:45 | REP ---
INDICATION: trauma. COMPARISON: None. TECHNIQUE: Three views FINDINGS: Three views of the left shoulder demonstrate normal alignment of the glenohumeral and acromioclavicular joints. Periarticular soft tissues are unremarkable. No fracture or subluxation is seen. The visualized left ribcage is intact. IMPRESSION: Negative radiographs of the left shoulder. <Electronically signed by Edd Marina > 03/22/21 [id number]
[2021-03-22] MEDS ORDERED: KETOROLAC 30 MG/ML 1ML VIAL IV ONE (15:25)
[2021-03-22] MEDS ORDERED: cefTRIAXone SOD 2 GM in D5W MINI-BAG PLUS 50 ML IV ONE (15:35)
--- NOTE | 2021-03-22 15:42 | SMCUROLCON ---
Urology Consultation General Date of Consultation 03/22/21 Reason For Consultation This patient is seen for Urinary Prob. History of Present Illness 55 yo woman with obstructing right ureteral stone and pain. Now in Er with pain and + UA with yeast. Rec IV abx (ceftriaxone and fluconazole) and will add on f or cystoscopy and right ureteral stent insertion. Would admit to hospitalist service for overnight observation and continue antibiotics until final urine cultures are available. Allergies Allergies: Coded Allergies: No Known Allergies (Verified , 02/26/18) Vital Signs/I&O Vital Signs Date Time Temp Pulse Resp B/P (MAP) Pulse Ox O2 Delivery O2 Flow Rate FiO2 03/22/21 14:34 03/22/21 11:51 97.5 68 20 100 Room Air Laboratory Data 24H Labs Laboratory Tests 2 03/22/21 12:26: Immature Granulocyte % (Auto) 0.3, Neutrophils (%) (Auto) 84.2H, Lymphocytes (%) (Auto) 9.0L, Monocytes (%) (Auto) 5.1, Eosinophils (%) (Auto) 0.8, Basophils (%) (Auto) 0.6, Neutrophils # (Auto) 8.1, Lymphocytes # (Auto) 0.9L, Monocytes # (Auto) 0.5, Eosinophils # (Auto) 0.1, Basophils # (Auto) 0.1, Nucleated Red Blood Cells % (auto) 0.0, Urine Color YELLOW, Urine Appearance CLOUDYH, Urine pH 5.0, Urine Specific [place] 1.020, Urine Protein 2+H, Urine Glucose (UA) NEGATIVE, Urine Ketones NEGATIVE, Urine Blood 3+H, Urine Nitrite NEGATIVE, Urine Bilirubin NEGATIVE, Urine Urobilinogen 0.2, Urine Leukocyte Esterase NEGATIVE, Urine WBC (Auto) 62H, Urine RBC (Auto) TNTCH, Urine Hyaline Casts (Auto) 0, Urine Bacteria (Auto) NEGATIVE, Urine Squamous Epithelial Cells 8, Urine Mucus (Auto) SMALL, Urine Yeast-Like Cells (Auto) LARGEH, Urine Sperm (Auto) , Anion Gap 10, Glomerular Filtration Rate 50.8L, Calcium Level 9.6, Total Bilirubin 0.6, Direct Bilirubin 0.1, Aspartate Amino Transf (AST/SGOT) 13, Alanine Aminotransferase (ALT/SGPT) 24, Alkaline Phosphatase 101, Total Protein 7.6, Albumin 4.0, Albumin/Globulin Ratio 1.1L, Lipase 161 03/22/21 15:25: CBC/BMP Laboratory Tests 03/22/21 12:26 Microbiology Microbiology 03/22/21 Urine Culture, Received Pending EDWARD GOMEZ M.D. Mar 22, 2021 15:42
[2021-03-22] MEDS ORDERED: FLUTISP NARES (15:50)
[2021-03-22] MEDS ORDERED: POTA1TAB14 PO (15:50)
[2021-03-22] MEDS ORDERED: HYDR12CA PO (15:50)
[2021-03-22] MEDS ORDERED: CONRAY-60 60% 50ML VIAL (Q9961) As Ordered ONE (16:53)
[2021-03-22] MEDS ORDERED: FLUCONAZOLE 400 MG in IV 1 EA IV ONE (17:00)
[2021-03-22] MEDS ORDERED: ONDANSETRON 4MG/2ML VIAL As Ordered ONE (19:18)
[2021-03-22] MEDS ORDERED: propofoL 200 MG/20 ML VIAL As Ordered ONE (19:18)
[2021-03-22] MEDS ORDERED: MIDAZOLAM INJ 2MG/2ML VIAL (J2250 PER 1MG) As Ordered ONE (19:18)
[2021-03-22] MEDS ORDERED: LIDOCAINE 2% 100MG/5ML SDV (FOR ANES.) As Ordered ONE (19:18)
[2021-03-22] MEDS ORDERED: dexameTHASONE 4 MG/ML 1ML VIAL (J1100 PER 1MG) As Ordered ONE (19:18)
[2021-03-22] MEDS ORDERED: fentaNYL 100 MCG/2 ML INJECTION (J3010) As Ordered ONE (19:19)
--- NOTE | 2021-03-22 20:07 | REP ---
INDICATION: RIGHT URETERAL STONE. COMPARISON: CT 03/22/2021 TECHNIQUE: Two images from C-arm fluoroscopy provided to Dr. Dietz of the urology division for a right ureteral stent placement. FINDINGS: First image shows a ureteral wire extending into the renal pelvis on the right catheter over the wire. Second image shows the double pigtail stent coiled proximally in the renal pelvis and distally in the bladder. Along the right side of the upper pelvis adjacent to the stent is a radiodensity consistent with the ureteral stone seen on CT overlying the right 1st sacral segment. IMPRESSION: Status post placement right-sided double pigtail ureteral stent. Fluoroscopy time: 7 seconds. <Electronically signed by Aneesh Montgomery > 03/22/212002
[2021-03-22] MEDS ORDERED: LR 1,000 ML IV SCH (20:15)
[2021-03-22] MEDS ORDERED: ONDANSETRON 4MG/2ML VIAL IV PRN (20:15)
[2021-03-22] MEDS ORDERED: PERCOCET 5MG/325MG TAB PO PRN (20:15)
[2021-03-22] MEDS ORDERED: fentaNYL 100 MCG/2 ML INJECTION (J3010) IV PRN (20:15)
--- NOTE | 2021-03-22 20:42 | ROOPDOC ---
[facility] Report Of Operation Report of Operation DATE OF PROCEDURE: 03/22/21 PREPROCEDURE DIAGNOSES: RIGHT RENAL COLIC AND URETERAL STONE WITH HYDRONEPHROSIS POSTPROCEDURE DIAGNOSES: same PROCEDURE PERFORMED: cystoscopy, right retrograde pyelogram and ureteral stent insertion SURGEON: EDWARD GOMEZ MD FOOD MIXER: NONE ANESTHESIA: GENERAL LMA ESTIMATED BLOOD LOSS: Approximately 1 mL. COMPLICATIONS: NONE REMARKS: NORMAL RETROGRADE FINDINGS: PATENT RIGHT UOs AND EFFLUX SPECIMENS REMOVED: NONE PROCEDURE NOTE: 55 YO WOMEN H/O NEPHROLITHIASIS NOW WITH A 9 MM RIGHT URETERAL STONE WITH COLIC DESCRIPTION OF PROCEDURE: PATIENT WAS TAKEN TO THE OR AND TIME OUT AND CONSENT VERIFIED. SHE RECEIVED IV CEFTRIAXONE AND FLUCONAZOLE IN THE ER. SHE UNDERWENT GENERAL ANESTHESIA WITH LMA. WAS PLACED IN THE DORSOLITHOTOMY POSITION AND PREPPED AND DRAPED IN THE USUAL STERILE FASHION. A 21 FR CYSTOSCOPE WAS INTRODUCED INTO THE URETHRA AND BLADDER, WHICH WAS UNREMARKABLE. . THE LEFT WAS NORMAL. FLUOROSCOPY REVEALED THE MID URETERAL STONE. A 5 FR OPEN CATHETER WAS INTRODUCED INTO THE RIGHT URETERAL ORIFICE AND HYDBRID MOTION WIRE WAS INSERTED. A 6 FR URETERAL STENT WAS INSERTED INTO THE KIDNEY AND DISTAL COIL INTO THE BLADDER. THE BLADDER WAS DRAINED. PATIENT WAS AWAKENED AND TRANSFERRED TO THE PACU. SHE TOLERATED THE PROCEDURE WELL WITHOUT COMPLICATIONS. SHE WILL BE DISCHARGED HOME AND F/U IN THE UROLOGY CLINIC TO SCHEDULE URETEROSCOPY. EDWARD GOMEZ M.D. Mar 22, 2021 20:42
[2021-03-22] MEDS ORDERED: NS 1,000 ML IV SCH (21:05)
[2021-03-22] MEDS ORDERED: PERCOCET PO (21:11)
--- NOTE | 2021-03-22 21:15 | IPNPDOC ---
Date Seen The patient was seen on 03/22/21. Progress Note Urologist requested pain meds to be sent to patient's outpt pharmacy plan: Percocet sent . VS, I&O, 24H, Fishbone Vital Signs/I&O Vital Signs Date Time Temp Pulse Resp B/P (MAP) Pulse Ox O2 Delivery O2 Flow Rate FiO2 03/22/21 20:35 98.0 69 18 132/77 (95) 96 Room Air 03/22/21 20:15 10.0 Laboratory Data 24H LABS Laboratory Tests 2 03/22/21 12:26: Immature Granulocyte % (Auto) 0.3, Neutrophils (%) (Auto) 84.2H, Lymphocytes (%) (Auto) 9.0L, Monocytes (%) (Auto) 5.1, Eosinophils (%) (Auto) 0.8, Basophils (%) (Auto) 0.6, Neutrophils # (Auto) 8.1, Lymphocytes # (Auto) 0.9L, Monocytes # (Auto) 0.5, Eosinophils # (Auto) 0.1, Basophils # (Auto) 0.1, Nucleated Red Blood Cells % (auto) 0.0, Urine Color YELLOW, Urine Appearance CLOUDYH, Urine pH 5.0, Urine Specific [place] 1.020, Urine Protein 2+H, Urine Glucose (UA) NEGATIVE, Urine Ketones NEGATIVE, Urine Blood 3+H, Urine Nitrite NEGATIVE, Urine Bilirubin NEGATIVE, Urine Urobilinogen 0.2, Urine Leukocyte Esterase NEGATIVE, Urine WBC (Auto) 62H, Urine RBC (Auto) TNTCH, Urine Hyaline Casts (Auto) 0, Urine Bacteria (Auto) NEGATIVE, Urine Squamous Epithelial Cells 8, Urine Mucus (Auto) SMALL, Urine Yeast-Like Cells (Auto) LARGEH, Urine Sperm (Auto) , Anion Gap 10, Glomerular Filtration Rate 50.8L, Calcium Level 9.6, Total Bilirubin 0.6, Direct Bilirubin 0.1, Aspartate Amino Transf (AST/SGOT) 13, Alanine Aminotr ansferase (ALT/SGPT) 24, Alkaline Phosphatase 101, Total Protein 7.6, Albumin 4.0, Albumin/Globulin Ratio 1.1L, Lipase 161 03/22/21 15:25: Coronavirus (COVID-19)(PCR) NEGATIVE CBC/BMP Laboratory Tests 03/22/21 12:26 Microbiology Microbiology 7/22/21 Urine Culture, Received Pending ALEXANDER TIAN MD Mar 22, 2021 21:15
[2021-03-22 21:49] VITALS: BP 124/84
== END 2021-03-22 21:49 | disposition home or self-care (01) ==
LOC: M ED 11:50 → M SDC 11:51
PROVIDERS: ATTEND Urology
DX: N13.2 Hydronephrosis with renal and ureteral calculous obstruction (principal); K21.9 Gastro-esophageal reflux disease without esophagitis; F41.9 Anxiety disorder, unspecified; F32.9 Major depressive disorder, single episode, unspecified; M10.9 Gout, unspecified; D64.9 Anemia, unspecified; Z79.899 Other long term (current) drug therapy
CPT/HCPCS: 36415; 52332; 73030; 74176; 74420; 80048; 80076; 81001; 83690; 85025; 87086; 96365; 96367; 96375; 99284; C1769; C2617; J0696; J1100; J1450; J1885; J2250; J2405; J3010; Q9961; U0002

== ENCOUNTER → 2021-04-18 | Outpatient (CLI) | payer BC ==
[~2021-04-18] MED LIST changes: +FLUTISP NARES; +HYDR12CA PO; +POTA1TAB14 PO
--- NOTE | 2021-04-18 09:41 | REP ---
INDICATION: CALCULUS OF KIDNEY COMPARISON: None. TECHNIQUE: PA and lateral. FINDINGS: The mediastinum and cardiac silhouette are normal. The lung sorto are clear and without acute consolidation, effusion, or pneumothorax. The skeletal structures are intact and normal. IMPRESSION: No acute cardiopulmonary process. <Electronically signed by Eusebio Lambert > 04/18/21 0965
[2021-04-18 11:01] LABS: HEMATOCRIT 39.6 % (36.0-47.0); HEMOGLOBIN 12.1 g/dl (12.0-15.5); MEAN CORPUSCULAR HEMOGLOBIN 26.1 pg (27.0-33.0); MEAN CORPUSCULAR HGB CONC 30.6 g/dl (32.0-36.5); MEAN CORPUSCULAR VOLUME 85.3 fl (80.0-96.0); PLATELET COUNT, AUTOMATED 303 10^3/uL (150-450); RED BLOOD COUNT 4.64 10^6/uL (4.00-5.40); WHITE BLOOD COUNT 5.8 10^3/uL (4.0-10.0)
[2021-04-18 11:12] LABS: INR 0.97; PROTHROMBIN TIME 13.3 SECONDS (12.7-14.5)
[2021-04-18 11:13] LABS: PARTIAL THROMBOPLASTIN TIME 28.9 SECONDS (25.9-37.0)
[2021-04-18 11:28] LABS: BLOOD UREA NITROGEN 19 MG/DL (7-18); CALCIUM LEVEL 8.5 MG/DL (8.5-10.1); CARBON DIOXIDE LEVEL 25 MEQ/L (21-32); CHLORIDE LEVEL 108 MEQ/L (98-107); CREATININE FOR GFR 1.02 MG/DL (0.55-1.30); GLOMERULAR FILTRATION RATE > 60.0 (>51); GLUCOSE, FASTING 83 MG/DL (70-100); POTASSIUM SERUM 3.8 MEQ/L (3.5-5.1); SODIUM LEVEL 139 MEQ/L (136-145)
== END ==
LOC: M PLAIMG 08:50
PROVIDERS: ATTEND Nurse Practitioner Family
DX: N20.0 Calculus of kidney (principal)

== ENCOUNTER → 2021-04-18 | Outpatient (REF) | payer BC | LOC: M SFHCPLAZ 08:54 | PROVIDERS: ATTEND Internal Medicine | DX: E78.00 Pure hypercholesterolemia, unspecified (principal) ==

== ENCOUNTER → 2021-04-18 | Outpatient (CLI) | payer BC | LOC: M PLALAB 09:03 | PROVIDERS: ATTEND Internal Medicine | DX: E78.00 Pure hypercholesterolemia, unspecified (principal) ==

== ENCOUNTER → 2021-04-18 | Outpatient (REF) | payer BC ==
[2021-04-18 19:54] LABS: APPEARANCE, URINE CLOUDY (CLEAR); BACTERIA, URINE AUTO NEGATIVE (NEGATIVE); BILIRUBIN, URINE AUTO NEGATIVE (NEGATIVE); BLOOD, URINE BLOOD 3+ (NEGATIVE); COLOR, URINE YELLOW (YELLOW); GLUCOSE, URINE (UA) AUTO NEGATIVE (NEGATIVE); KETONE, URINE AUTO NEGATIVE (NEGATIVE); LEUKOCYTE ESTERASE, URINE AUTO TRACE (NEGATIVE); MUCUS, URINE SMALL (NEGATIVE); NITRITE, URINE AUTO NEGATIVE (NEGATIVE); PROTEIN, URINE AUTO 2+ mg/dL (NEGATIVE); RBC, URINE AUTO TNTC /HPF (0-3); SPECIFIC GRAVITY URINE AUTO 1.013 (1.002-1.035); SQUAMOUS EPITHELIAL CELL UR AU 2 /HPF (0-6); UROBILINOGEN, URINE AUTO 0.2 mg/dL (0.0-2.0); WBC, URINE AUTO 2 /HPF (0-3)
== END ==
LOC: M SMT 19:28
PROVIDERS: ATTEND Nurse Practitioner Family
DX: Z01.818 Encounter for other preprocedural examination (principal); N20.0 Calculus of kidney

== ENCOUNTER → 2021-04-20 | Outpatient (CLI) | payer BC | LOC: M LABSMTC 11:44 | PROVIDERS: ATTEND Anesthesiology | DX: Z20.828 Contact with and (suspected) exposure to other viral communicable diseases (principal); Z11.59 Encounter for screening for other viral diseases ==

== ENCOUNTER 2021-04-25 06:07 | Day surgery (SDC) | payer BC ==
[~2021-04-25] VITALS: Ht 157.5 cm; Wt 68.9 kg
[~2021-04-25 06:07] MED LIST changes: +LIDOCAINE 1% MDV 20ML VIAL SQ PRN; +LR 1,000 ML IV ONE; +ceFAZolin SOD 2 GM in IV 1 EA IV ONE
[2021-04-25] MEDS ORDERED: MIDAZOLAM INJ 2MG/2ML VIAL (J2250 PER 1MG) As Ordered ONE (07:01)
[2021-04-25] MEDS ORDERED: fentaNYL 100 MCG/2 ML INJECTION (J3010) As Ordered ONE (07:02)
[2021-04-25] MEDS ORDERED: LIDOCAINE 2% 100MG/5ML SDV (FOR ANES.) As Ordered ONE (07:06)
[2021-04-25] MEDS ORDERED: dexameTHASONE 4 MG/ML 1ML VIAL (J1100 PER 1MG) As Ordered ONE (07:08)
[2021-04-25] MEDS ORDERED: CONRAY-60 60% 50ML VIAL (Q9961) As Ordered ONE (07:18)
[2021-04-25] MEDS ORDERED: KETOROLAC 60MG 2ML VIAL As Ordered ONE (07:47)
[2021-04-25] MEDS ORDERED: ONDANSETRON 4MG/2ML VIAL As Ordered ONE (07:47)
[2021-04-25] MEDS ORDERED: propofoL 200 MG/20 ML VIAL As Ordered ONE (07:47)
[2021-04-25] MEDS ORDERED: ePHEDrine SULFATE 25 MG/5 ML(5MG/ML) SYRINGE As Ordered ONE (07:56)
[2021-04-25] MEDS ORDERED: ACETAMINOPHEN 1000MG 100ML IV BTL (OFIRMEV) (J0131 PER 10MG) As Ordered ONE (08:07)
--- NOTE | 2021-04-25 08:57 | REP ---
INDICATION: RIGHT STENT PLACEMENT. COMPARISON: None. TECHNIQUE: Three views. 10 seconds of fluoroscopy time is reported. FINDINGS: A sequence of 3 last image hold fluoroscopically obtained spot radiographs of the right abdomen document right ureteral cannulation, contrast injection, and double-pigtail stent placement. IMPRESSION: Procedural imaging. <Electronically signed by Edd Marina > 04/25/21 1135
[2021-04-25] MEDS ORDERED: ONDANSETRON 4MG/2ML VIAL IV PRN (09:15)
[2021-04-25] MEDS ORDERED: LR 1,000 ML IV SCH (09:15)
[2021-04-25] MEDS ORDERED: fentaNYL 100 MCG/2 ML INJECTION (J3010) IV PRN (09:15)
[2021-04-25] MEDS ORDERED: oxyCODONE 5MG TAB PO PRN (09:15)
[2021-04-25] MEDS ORDERED: PERCOCET 5MG/325MG TAB PO PRN (09:20)
--- NOTE | 2021-04-25 09:52 | RO ---
OPERATIVE NOTE DATE OF OPERATION: 04/25/2021 PREOPERATIVE DIAGNOSIS: Right ureteral stone. POSTOPERATIVE DIAGNOSIS: Right ureteral stone. PROCEDURE: Cystoscopy, right ureteroscopy with laser lithotripsy and basket extraction of stone, right retrograde pyelogram with intraop interpretation of images, right ureteral stent exchange. SURGEON: Florentino Cordero MD MINGLER OPERATOR: None. ANESTHESIA: General. OPERATIVE INDICATIONS: This is a 55-year-old female who was found to have an obstructing 1 cm distal right ureteral stone recently. She had a right ureteral stent placed. She is brought to the operating room today to remove the stone. DESCRIPTION OF PROCEDURE: The patient was brought to the operating room and general anesthesia was induced. Prophylactic antibiotics were infused. She was placed in the dorsal lithotomy position, and prepped and draped in the usual sterile fashion. A rigid cystoscope was inserted in the urethral meatus and advanced into the bladder. A guidewire was advanced up the right collecting system. The previously placed right ureteral stent was removed. A guidewire was advanced up the right collecting system. I went up the right collecting system with a short semirigid ureteroscope and within the distal ureter, the 1 cm stone was seen. The stone was fragmented into smaller pieces using a 272 micron laser and all the fragments were then removed. The fragments were removed with the basket. Once satisfied all the fragments were removed, I examined the more proximal ureter and no additional stones were seen. A retrograde pyelogram was performed and was notable for moderate right hydroureteronephrosis and no extravasation. I then utilized the guidewire to advance a 6-Afghan x 22-32 cm JJ ureteral stent into the right collecting system. The wire was removed and there were adequate curls of the stent in the right renal pelvis and in the bladder. The bladder was then emptied of all fluid and then the string of the stent was secured to the patient's lower abdomen. This marked the conclusion of the procedure. The patient was then taken out of dorsal lithotomy position, awakened from anesthesia and transported to the recovery room in stable condition. ESTIMATED BLOOD LOSS: 5 mL COMPLICATIONS: None. SPECIMENS: Kidney stone fragments. PLAN: The patient can remove her stent in ten days using the string. We will see her back in urology office in a few weeks for a postoperative visit. ABBY
[2021-04-25 10:05] VITALS: BP 109/66
[2021-04-25] MEDS ORDERED: PERCOCET PO (11:28)
[2021-05-01 12:11] LABS: CA Oxalate Dihy 10 % (.); Ca Ox Monohydrate 40 % (.); Size 6x4 mm (.)
== END 2021-04-25 10:05 | disposition home or self-care (01) ==
LOC: M SDC 06:07
PROVIDERS: ATTEND Urology
DX: N20.1 Calculus of ureter (principal); D64.9 Anemia, unspecified; F41.9 Anxiety disorder, unspecified; Z79.899 Other long term (current) drug therapy
CPT/HCPCS: 52356; 76000; 82365; 88300; C1769; C2617; J0131; J1100; J2250; J2405; J3010; Q9961

== ENCOUNTER → 2021-05-18 | Outpatient (REF) | payer BC ==
[~2021-05-18] MED LIST changes: -CITA40TA4; -CITA40TA4 PO; +CITA40TA7; +CITA40TA7 PO; -LIDOCAINE 1% MDV 20ML VIAL SQ PRN; -LR 1,000 ML IV ONE; -ceFAZolin SOD 2 GM in IV 1 EA IV ONE
== END ==
LOC: M LAB REF 17:03
PROVIDERS: ATTEND Nurse Practitioner Family
DX: E83.42 Hypomagnesemia (principal)

== ENCOUNTER → 2021-06-25 | Outpatient (CLI) | payer BC ==
[~2021-06-25] MED LIST changes: +CITA40TA4; +CITA40TA4 PO; -CITA40TA7; -CITA40TA7 PO
--- NOTE | 2021-06-25 14:18 | REPMRS ---
Patient History The patient states she has not had a clinical breast exam in over a year. Patient is postmenopausal. Family history of prostate cancer at age 69 in father, pancreatic cancer at age 68 in maternal aunt. No Hormone Replacement Therapy Patient states no breast complaints today. Patient has signed MRS History Sheet. Digital Woman Screen Mammo: June 25, 2021 - Exam #: [id number] Bilateral CC and MLO view(s) were taken. Technologist: Gin Friedman, [employer] FINDINGS: There are scattered fibroglandular densities. Screening. Digital screening (2D) mammography was performed bilaterally in the CC and MLO projections. Additionally, breast tomosynthesis (3D mammography) was performed bilaterally in the CC and MLO projections. Todays exam was compared to the prior exam/exams. By history, the patient has no complaints of a palpable breast abnormality or other significant breast complaints. The Volpara volumetric breast density category is B, there are scattered areas of fibroglandular densities. There is a stable, benign, intramammary lymph node, on the left. The breasts are unchanged in size and shape. There are no ally-soft tissue densities or spiculated masses. There is no internal architectural distortion. There are no suspicious ally-calcific clusters. Skin thickening or nipple retraction is not present. IMPRESSION: BI-RADS Category 2- Benign Findings. There is no evidence of malignant alteration of the breasts. Followup examination recommended in one year. The lifetime Tyrer-Cuzick score is 9.9% This mammogram was read with the assistance of [facility],an FDA approved computer aided detection system for mammography. Negative x-ray reports should not delay surgical consultation if a dominant or clinically suspicious mass is present. Not all breast cancers can be identified by mammography. Therefore, we recommend that you continue to perform regular breast self-examination and physical examination and then promptly contact your physician of any concerns or changes. Adenosis and dense breasts may obscure an underlying neoplasm. No significant changes when compared with prior studies. Assessment: BI-RADS/ACR category 2 mammogram. Benign Findings. Recommendation Routine screening mammogram of both breasts in 1 year. Electronically Signed By: Abelardo Mccain MD 06/25/21 1217
== END ==
LOC: M WHC 12:46
PROVIDERS: ATTEND Nurse Practitioner Adult Health
DX: Z12.31 Encounter for screening mammogram for malignant neoplasm of breast (principal)

== ENCOUNTER → 2021-08-17 | Outpatient (REF) | payer BC ==
[~2021-08-17] MED LIST changes: -CITA40TA4; -CITA40TA4 PO; +CITA40TA7; +CITA40TA7 PO
== END ==
LOC: M SFHCPLAZ 12:53
PROVIDERS: ATTEND Nurse Practitioner Adult Health
DX: L02.91 Cutaneous abscess, unspecified (principal)

== ENCOUNTER → 2021-09-24 | Outpatient (CLI) | payer OTHER | LOC: M RAD 14:26 | PROVIDERS: ATTEND Nurse Practitioner Family | DX: N20.0 Calculus of kidney (principal) ==

== ENCOUNTER → 2023-01-20 | Outpatient (CLI) | payer OTHER ==
[~2023-01-20] MED LIST changes: +FLUT50SP17 NARES; -FLUTISP NARES; +POTA-298 PO; -POTA1TAB14 PO
== END ==
LOC: M PLAIMG 11:33
PROVIDERS: ATTEND Nurse Practitioner Family
DX: N20.0 Calculus of kidney (principal)

== ENCOUNTER → 2023-04-03 | Outpatient (CLI) | payer OTHER ==
[2023-04-03 16:40] LABS: BILIRUBIN,TOTAL 0.9 MG/DL (0.3-1.2); CALCIUM LEVEL 9.3 MG/DL (8.5-10.1); CHOLESTEROL RISK RATIO 3.31 (<5); CREATININE FOR GFR 1.03 MG/DL (0.55-1.30); HDL CHOLESTEROL 71.8 MG/DL (>40); LDL CHOLESTEROL 129.2 MG/DL (<100); NON-HDL-C 166.2 MG/DL; POTASSIUM SERUM 3.6 MMOL/L (3.5-5.1)
[2023-04-03 16:44] LABS: THYROID STIMULATING HORMONE 0.948 uIU/ML (0.55-4.78); TOTAL 25(OH) VITAMIN D 46.5 NG/ML (20.0-100.0)
== END ==
LOC: M PLALAB 12:48
PROVIDERS: ATTEND Nurse Practitioner Adult Health
DX: Z00.00 Encounter for general adult medical examination without abnormal findings (principal); E83.52 Hypercalcemia; E78.00 Pure hypercholesterolemia, unspecified

== ENCOUNTER 2023-04-10 11:44 | Emergency (ER) | payer OTHER ==
[~2023-04-10] VITALS: Ht 160 cm; Wt 73.8 kg
[2023-04-10 11:45] VITALS: BP 143/101; TEMP 97.8; O2SAT 99
[2023-04-10] MEDS ORDERED: VALI2TAB PO (14:46)
== END 2023-04-10 15:05 | disposition home or self-care (01) ==
LOC: M ED 11:44
DX: M26.621 Arthralgia of right temporomandibular joint (principal); N18.30 Chronic kidney disease, stage 3 unspecified; E21.0 Primary hyperparathyroidism; F41.9 Anxiety disorder, unspecified; Z79.891 Long term (current) use of opiate analgesic; Z79.899 Other long term (current) drug therapy

== ENCOUNTER → 2023-07-30 | Outpatient (CLI) | payer OTHER ==
[~2023-07-30] MED LIST changes: -OXYB5TAB10 PO; +OXYB5TAB11 PO; +VALI2TAB PO
== END ==
LOC: M PLAIMG 13:18
PROVIDERS: ATTEND Dentist Orthodontics and Dentofacial Orthopedics
DX: M26.51 Abnormal jaw closure (principal); M51.24 Other intervertebral disc displacement, thoracic region

== ENCOUNTER → 2024-03-10 | Outpatient (REF) | payer OTHER ==
[~2024-03-10] MED LIST changes: -FLUT50SP17 NARES; +FLUTISP NARES; -OXYB5TAB11 PO; +OXYB5TAB14 PO
[2024-03-10 19:05] LABS: FERRITIN 2.3 NG/ML (7.3-270.7); PERCENT SATURATION 5.3 % (13.2-45.0)
== END ==
LOC: M LAB REF 17:18
PROVIDERS: ATTEND Nurse Practitioner Family
DX: D50.9 Iron deficiency anemia, unspecified (principal)

== ENCOUNTER 2024-03-22 07:54 | Outpatient (CLI) | payer OTHER ==
[~2024-03-22 07:54] MED LIST changes: +ALBUTEROL SULFATE 2.5MG/0.5ML INH NEB SOLN INH PRN; +EPINEPHrine INJ 1 MG/ML 1ML AMP IM PRN; +diphenhydrAMINE 50MG/ML VIAL IV PRN; +methylPREDNISolone 125MG 2ML VIAL IV PRN
[2024-03-22] MEDS ORDERED: NS 1,000 ML IV SCH (08:00)
[2024-03-22 08:18] VITALS: BP 106/67; O2SAT 97
[2024-03-22] MEDS: IRON SUCROSE 25 MG in NS 23.75 ML IV ONE (08:45)
[2024-03-22 09:00] VITALS: BP 110/63; O2SAT 99
[2024-03-22] MEDS: IRON SUCROSE 475 MG in NS 250 ML IV ONE (09:28)
[2024-03-22 10:00] VITALS: BP 112/67; O2SAT 100
[2024-03-22 11:00] VITALS: BP 102/64; O2SAT 100
[2024-03-22 12:00] VITALS: BP 114/64; O2SAT 100
[2024-03-22 13:30] VITALS: BP 104/70; O2SAT 100
== END 2024-03-22 13:40 ==
LOC: M INFU 07:54
PROVIDERS: ATTEND Nurse Practitioner Family
DX: D50.9 Iron deficiency anemia, unspecified (principal)
CPT/HCPCS: 96365; 96366; J1756

== ENCOUNTER 2024-04-05 08:25 | Outpatient (CLI) | payer OTHER ==
[~2024-04-05] VITALS: Ht 157.5 cm; Wt 68.2 kg
[2024-04-05 08:25] VITALS: BP 130/62; O2SAT 98
[~2024-04-05 08:25] MED LIST changes: +NS 1,000 ML IV SCH
[2024-04-05] MEDS: IRON SUCROSE 500 MG in NS 250 ML OVER 4 HRS IV ONE (08:40)
[2024-04-05 13:00] VITALS: BP 110/66; O2SAT 97
== END 2024-04-05 13:00 | disposition home or self-care (01) ==
LOC: M INFU 08:25
PROVIDERS: ATTEND Nurse Practitioner Family
DX: D50.9 Iron deficiency anemia, unspecified (principal)
CPT/HCPCS: 96365; 96366; J1756

== ENCOUNTER → 2024-08-05 | Outpatient (CLI) | payer OTHER ==
[~2024-08-05] MED LIST changes: -ALBUTEROL SULFATE 2.5MG/0.5ML INH NEB SOLN INH PRN; -EPINEPHrine INJ 1 MG/ML 1ML AMP IM PRN; +GABA-1172; +GABA-1172 PO; -GABA-282; -GABA-282 PO; -NS 1,000 ML IV SCH; -diphenhydrAMINE 50MG/ML VIAL IV PRN; -methylPREDNISolone 125MG 2ML VIAL IV PRN
== END ==
LOC: M WHC 15:24
PROVIDERS: ATTEND Nurse Practitioner Adult Health
DX: Z12.31 Encounter for screening mammogram for malignant neoplasm of breast (principal); R92.313 Mammographic fatty tissue density, bilateral breasts

== ENCOUNTER 2024-10-16 10:51 | Emergency (ER) | payer MEDICARE, OTHER ==
[~2024-10-16] VITALS: Ht 160 cm; Wt 77.6 kg
[2024-10-16] MEDS: NS (Normal Saline) 0.9% 1,000 ML IV ONE (12:30)
[2024-10-16 12:43] LABS: BASO # 0.1 10^3/uL (0.0-0.2); BASO % 0.5 % (0.0-1.0); EOS # 0.3 10^3/uL (0.0-0.5); EOS % 3.3 % (0.0-3.0); HEMATOCRIT 32.8 % (36.0-47.0); HEMOGLOBIN 10.6 g/dl (12.0-15.5); LYMPH # 1.7 10^3/uL (1.5-5.0); MEAN CORPUSCULAR HEMOGLOBIN 30.1 pg (27.0-33.0); MEAN CORPUSCULAR HGB CONC 32.3 g/dl (32.0-36.5); MEAN CORPUSCULAR VOLUME 93.2 fl (80.0-96.0); MONO # 0.8 10^3/uL (0.0-0.8); MONO % 7.6 % (2.0-8.0); PLATELET COUNT, AUTOMATED 357 10^3/uL (150-450); RED BLOOD COUNT 3.52 10^6/uL (4.00-5.40); WHITE BLOOD COUNT 9.8 10^3/uL (4.0-10.0)
[2024-10-16 12:45] LABS: KETONE, URINE AUTO RFX NEGATIVE (NEGATIVE); LEUKOCYTE ESTERASE UR AUTO RFX NEGATIVE (NEGATIVE); NITRITE, URINE AUTO RFX NEGATIVE (NEGATIVE); RBC, URINE AUTO RFX 0 /HPF (0-3); SQUAM EPITHELIAL CELL UR AURFX 3 /HPF (0-6); WBC, URINE AUTO RFX 1 /HPF (0-3)
[2024-10-16 13:08] LABS: ALBUMIN 3.7 G/DL (3.2-5.2); BILIRUBIN,DIRECT 0.2 MG/DL (<0.4); BILIRUBIN,TOTAL 1.1 MG/DL (0.3-1.2)
[2024-10-16] MEDS: KETOROLAC 30 MG/ML 1ML VIAL IV ONE (13:09)
[2024-10-16 13:33] VITALS: BP 105/72; TEMP 96.6; O2SAT 100
[2024-10-16] MEDS ORDERED: METH-1165 PO (14:06)
[2024-10-16] MEDS: methylPREDNISolone 125MG 2ML VIAL IV ONE (14:25)
== END 2024-10-16 14:36 | disposition home or self-care (01) ==
LOC: M ED 10:51
DX: N20.0 Calculus of kidney (principal); Z87.442 Personal history of urinary calculi; K21.9 Gastro-esophageal reflux disease without esophagitis; Z79.899 Other long term (current) drug therapy
CPT/HCPCS: 74176; 80047; 80076; 81001; 83690; 85025; 96361; 96374; 96375; 99284; J1885; J2919

== ENCOUNTER 2024-12-27 19:48 | Emergency (ER) | payer OTHER ==
[~2024-12-27] VITALS: Ht 157.5 cm; Wt 74.2 kg
[~2024-12-27 19:48] MED LIST changes: -FLOM0.4C39 PO; +METH-1165 PO; +TAMS-18 PO; +TOPI-256; +TOPI-256 PO; -TOPI25TA10; -TOPI25TA10 PO
[2024-12-27 20:37] LABS: BASO # 0.1 10^3/uL (0.0-0.2); BASO % 1.3 % (0.0-1.0); EOS # 0.3 10^3/uL (0.0-0.5); EOS % 3.8 % (0.0-3.0); HEMATOCRIT 28.4 % (36.0-47.0); HEMOGLOBIN 7.9 g/dl (12.0-15.5); LYMPH # 1.9 10^3/uL (1.5-5.0); LYMPH % 28.1 % (24.0-44.0); MEAN CORPUSCULAR HEMOGLOBIN 21.5 pg (27.0-33.0); MEAN CORPUSCULAR HGB CONC 27.8 g/dl (32.0-36.5); MEAN CORPUSCULAR VOLUME 77.2 fl (80.0-96.0); MONO # 0.6 10^3/uL (0.0-0.8); MONO % 8.6 % (2.0-8.0); NEUTROPHILS % 57.8 % (36.0-66.0); PLATELET COUNT, AUTOMATED 391 10^3/uL (150-450); RED BLOOD COUNT 3.68 10^6/uL (4.00-5.40); WHITE BLOOD COUNT 6.9 10^3/uL (4.0-10.0)
[2024-12-27 20:50] LABS: INR 0.93; PARTIAL THROMBOPLASTIN TIME 25.7 SECONDS (24.8-34.2); PROTHROMBIN TIME 12.8 SECONDS (12.5-14.5)
[2024-12-27 21:00] LABS: CALCIUM LEVEL 9.5 MG/DL (8.5-10.1); CREATININE FOR GFR 1.1 MG/DL (0.55-1.30); GLOMERULAR FILTRATION RATE 58.2 (>51); POTASSIUM SERUM 3.4 MMOL/L (3.5-5.1)
[2024-12-27 23:11] LABS: PERCENT SATURATION 3.5 % (13.2-45.0)
[2024-12-28] MEDS ORDERED: ROPI5TAB19 PO (00:53)
[2024-12-28 01:00] VITALS: BP 120/79
[2024-12-28 01:30] VITALS: O2SAT 98
[2024-12-28] MEDS: rOPINIRole 0.25 MG TAB(REQUIP) PO ONE (01:35)
[2024-12-28 01:43] VITALS: TEMP 97.7
== END 2024-12-28 01:44 | disposition home or self-care (01) ==
LOC: M ED 19:48
DX: D50.9 Iron deficiency anemia, unspecified (principal); G25.81 Restless legs syndrome; F41.1 Generalized anxiety disorder; E55.9 Vitamin D deficiency, unspecified; N18.9 Chronic kidney disease, unspecified; F17.200 Nicotine dependence, unspecified, uncomplicated; Z87.442 Personal history of urinary calculi; Z79.899 Other long term (current) drug therapy

== ENCOUNTER 2025-01-14 11:23 | Outpatient (CLI) | payer OTHER ==
[~2025-01-14] VITALS: Ht 157.5 cm; Wt 71.9 kg
[~2025-01-14 11:23] MED LIST changes: +ALBUTEROL SULFATE 2.5MG/0.5ML INH CONCENTRATE NEB SOLN INH PRN; +EPINEPHrine INJ 1 MG/ML 1ML AMP IM PRN; +ROPI5TAB19 PO; +diphenhydrAMINE 50MG/ML VIAL IV PRN; +methylPREDNISolone 125MG 2ML VIAL IV PRN
[2025-01-14 11:40] VITALS: BP 120/74; O2SAT 98
[2025-01-14] MEDS: IRON SUCROSE 100 MG, IRON SUCROSE COMPLEX 200 MG in NS 250 ML IV ONE (11:50)
[2025-01-14 13:15] VITALS: BP 135/60; O2SAT 95
[2025-01-14 13:34] VITALS: BP 121/78; O2SAT 99
== END 2025-01-14 13:35 | disposition home or self-care (01) ==
LOC: M INFU 11:23
PROVIDERS: ATTEND Nurse Practitioner Adult Health
DX: D50.9 Iron deficiency anemia, unspecified (principal)
CPT/HCPCS: 96365; 96366; J1756

== ENCOUNTER → 2025-03-16 | Outpatient (CLI) | payer OTHER ==
[~2025-03-16] MED LIST changes: -ALBUTEROL SULFATE 2.5MG/0.5ML INH CONCENTRATE NEB SOLN INH PRN; -EPINEPHrine INJ 1 MG/ML 1ML AMP IM PRN; -diphenhydrAMINE 50MG/ML VIAL IV PRN; -methylPREDNISolone 125MG 2ML VIAL IV PRN
[2025-03-16 16:09] LABS: IRON (FE) 27.0 UG/DL (50-170); PERCENT SATURATION 7.0 % (13.2-45.0)
[2025-03-16 16:10] LABS: ALT/SGPT 30.0 U/L (7.0-40); AST/SGOT 25.0 U/L (<34); CALCIUM LEVEL 9.6 MG/DL (8.5-10.1); CARBON DIOXIDE LEVEL 26.0 MMOL/L (20-31); CHLORIDE LEVEL 103.0 MMOL/L (98-107); CHOLESTEROL LEVEL 252.0 MG/DL (<200); CHOLESTEROL RISK RATIO 3.88 (<5); CREATININE FOR GFR 1.0 MG/DL (0.55-1.30); FREE T4 1.13 NG/DL (0.89-1.76); GLOMERULAR FILTRATION RATE 65.3 (>51); LDL CHOLESTEROL 153.3 MG/DL (<100); MAGNESIUM LEVEL 2.0 MG/DL (1.8-2.4); NON-HDL-C 187.1 MG/DL; POTASSIUM SERUM 4.0 MMOL/L (3.5-5.1); PTH INTACT 60.1 PG/ML (18.5-88.0); SODIUM LEVEL 142.0 MMOL/L (136-145); TRIGLYCERIDES LEVEL 169.0 MG/DL (<150)
== END ==
LOC: M PLALAB 11:59
PROVIDERS: ATTEND Nurse Practitioner Adult Health
DX: Z00.00 Encounter for general adult medical examination without abnormal findings (principal); E83.52 Hypercalcemia; D50.9 Iron deficiency anemia, unspecified; E55.9 Vitamin D deficiency, unspecified; G25.81 Restless legs syndrome

== ENCOUNTER → 2025-08-08 | Outpatient (REF) ==
[~2025-08-08] MED LIST changes: +HYDR12.510 PO; -HYDR12CA PO
== END ==
LOC: M PLAIMG 09:33
PROVIDERS: ATTEND Internal Medicine
DX: R52 Pain, unspecified (principal)

== ENCOUNTER → 2025-08-30 | Outpatient (CLI) | payer OTHER ==
[2025-08-30 17:07] LABS: PLATELET COUNT, AUTOMATED 326 10^3/uL (150-450)
[2025-08-30 17:41] LABS: ALT/SGPT 25.0 U/L (7.0-40); AST/SGOT 23.0 U/L (<34); CALCIUM LEVEL 9.6 MG/DL (8.5-10.1); CARBON DIOXIDE LEVEL 26.0 MMOL/L (20-31); CHLORIDE LEVEL 105.0 MMOL/L (98-107); CREATININE FOR GFR 0.93 MG/DL (0.55-1.30); GLOMERULAR FILTRATION RATE 71.2 (>51); IRON (FE) 57.0 UG/DL (50-170); MAGNESIUM LEVEL 1.9 MG/DL (1.8-2.4); POTASSIUM SERUM 3.9 MMOL/L (3.5-5.1); SODIUM LEVEL 141.0 MMOL/L (136-145)
== END ==
LOC: M PLALAB 13:44
PROVIDERS: ATTEND Nurse Practitioner Adult Health
DX: E83.52 Hypercalcemia (principal); D50.9 Iron deficiency anemia, unspecified; G25.81 Restless legs syndrome